=== PATIENT | female | born 1980 | race Caucasian/White ===

== ENCOUNTER → 2016-12-05 | Outpatient (CLI) | payer OTHER ==
[~2016-12-05] MED LIST: ABILIFY20 MG PO; ATIVAN 0.50.5 MG/TAB PO; BENADRYL50 MG PO; COUMADIN 77.5 MG/TAB PO; FAM-PREN FORTE1 CAP PO; FIORICET 325 MG1 TA1 PO; FOLIC ACID0.4 MG PO; KEPPRA750 MG PO; KLONOPIN 1MG1 MG PO; LAMICTAL 100MG100 MG PO; LEXAPRO20 MG PO; LOVENOX 100100 MG/ML SQ; MULTIPLE VITAMI1 TAB PO; REGLAN 10MG10 MG/TAB PO; ZOFRAN 4MG T4 MG/TAB PO
== END ==
LOC: BHSO 13:44
DX: F31.81 Bipolar II disorder (principal)

== ENCOUNTER → 2017-01-10 | Outpatient (CLI) | payer OTHER | LOC: BHSO 13:41 | DX: F42.2 Mixed obsessional thoughts and acts (principal) ==

== ENCOUNTER → 2017-03-07 | Outpatient (CLI) | payer OTHER | LOC: BHSO 13:57 | DX: F42.2 Mixed obsessional thoughts and acts (principal) ==

== ENCOUNTER → 2017-04-10 | Outpatient (CLI) | payer OTHER | LOC: COL.LAB 16:52 | DX: Z01.89 Encounter for other specified special examinations (principal) ==

== ENCOUNTER → 2017-05-04 | Outpatient (CLI) | payer OTHER | LOC: BHSO 11:12 | DX: F31.73 Bipolar disorder, in partial remission, most recent episode manic (principal) ==

== ENCOUNTER → 2017-06-14 | Outpatient (CLI) | payer OTHER | LOC: BHSO 14:45 | DX: F31.73 Bipolar disorder, in partial remission, most recent episode manic (principal) ==

== ENCOUNTER → 2017-08-21 | Outpatient (CLI) | payer OTHER | LOC: BHSO 15:31 | DX: F43.9 Reaction to severe stress, unspecified (principal) ==

== ENCOUNTER → 2017-11-05 | Outpatient (CLI) | payer OTHER | LOC: BHSO 14:35 | DX: F41.1 Generalized anxiety disorder (principal) | CPT/HCPCS: G0463 ==

== ENCOUNTER → 2018-01-24 | Outpatient (CLI) | payer OTHER | LOC: BHSO 13:51 | DX: F31.81 Bipolar II disorder (principal) | CPT/HCPCS: G0463 ==

== ENCOUNTER → 2018-03-20 | Outpatient (CLI) | payer OTHER | LOC: BHSO 13:38 | DX: F43.10 Post-traumatic stress disorder, unspecified (principal) | CPT/HCPCS: G0463 ==

== ENCOUNTER 2018-06-17 08:27 | Day surgery (SDC) | payer OTHER ==
[~2018-06-17] VITALS: Ht 162.6 cm; Wt 50.7 kg
[2018-06-17 09:10] VITALS: BP 128/65; PULSE 110; TEMP 98.5
[2018-06-17] MEDS ORDERED: KEPPRA1000 MG PO (09:17)
[2018-06-17] MEDS ORDERED: DEPAKOTE ER 50500 MG PO (09:18)
[2018-06-17] MEDS ORDERED: REXULTI4 MG PO (09:19)
[2018-06-17] MEDS ORDERED: CARAFATE 1GM1 G PO (09:20)
[2018-06-17] MEDS ORDERED: PRILOSEC 20MG20 MG PO (09:20)
[2018-06-17] MEDS ORDERED: PHENERGAN 25 TA25 MG PO (09:21)
[2018-06-17] MEDS ORDERED: FOLIC ACID 11 MG/TA1 PO (09:23)
[2018-06-17] MEDS ORDERED: HARD NAILS 2.51 CAP PO (09:23)
[2018-06-17] MEDS ORDERED: VITAMIN B COMPL1 T16 PO (09:24)
[2018-06-17] MEDS ORDERED: MULTI VITAMINS1 TAB PO (09:26)
[2018-06-17] MEDS ORDERED: NAPROSYN500 MG PO (09:27)
[2018-06-17] MEDS ORDERED: [UNRECOGNIZED DRUG - OTHER] PO (09:27)
[2018-06-17] MEDS ORDERED: DIASTAT PEDIAT2.5 MG RC (09:28)
[2018-06-17] MEDS ORDERED: FLEXERIL 1010 MG/TAB PO (09:32)
[2018-06-17 11:10] VITALS: BP 128/88; PULSE 88; TEMP 97.7
[2018-06-17 11:25] VITALS: BP 130/84; PULSE 86
[2018-06-17 11:30] VITALS: BP 121/79; PULSE 82
[2018-06-17 11:45] VITALS: BP 115/84; PULSE 84
[2018-06-17 12:00] VITALS: BP 113/77; PULSE 75
== END 2018-06-17 12:35 | disposition home or self-care (01) ==
LOC: SDCO 08:27
DX: K29.30 Chronic superficial gastritis without bleeding (principal); F41.9 Anxiety disorder, unspecified; F32.9 Major depressive disorder, single episode, unspecified; K21.9 Gastro-esophageal reflux disease without esophagitis; R56.9 Unspecified convulsions; F50.2 Bulimia nervosa; R19.7 Diarrhea, unspecified; Z86.010 Personal history of colon polyps
CPT/HCPCS: OP; J2250; J2704; J7030

== ENCOUNTER 2019-02-10 13:11 | Emergency (ER) | payer OTHER ==
[~2019-02-10] VITALS: Ht 172.7 cm; Wt 62.7 kg
[~2019-02-10 13:11] MED LIST changes: +CARAFATE 1GM1 G PO; +DEPAKOTE ER 50500 MG PO; +DIASTAT PEDIAT2.5 MG RC; +FLEXERIL 1010 MG/TAB PO; +FOLIC ACID 11 MG/TA1 PO; +HARD NAILS 2.51 CAP PO; +KEPPRA1000 MG PO; +MULTI VITAMINS1 TAB PO; +NAPROSYN500 MG PO; +PHENERGAN 25 TA25 MG PO; +PRILOSEC 20MG20 MG PO; +REXULTI4 MG PO; +VITAMIN B COMPL1 T16 PO; +[UNRECOGNIZED DRUG - OTHER] PO
[2019-02-10 13:14] VITALS: TEMP 97.8
[2019-02-10 14:02] LABS: ALANINE AMINOTRANSFERASE 12 U/L (9-52); ALBUMIN 4.4 gm/dL (3.5-5.0); ALKALINE PHOSPHATASE 51 U/L (50-136); ANION GAP 12 mmol/L (7-16); AST,SGOT 29 U/L (15-37); BILIRUBIN,TOTAL 0.4 mg/dL (0.0-1.0); BLOOD UREA NITROGEN 12 mg/dL (7-17); CALCIUM 9.2 mg/dL (8.4-10.2); CARBON DIOXIDE 25 mmol/L (22-30); CHLORIDE 101 mmol/L (98-107); GLUCOSE 81 mg/dL (74-106); POTASSIUM 4.1 mmol/L (3.4-5.0); SODIUM 137 mmol/L (137-145); TOTAL PROTEIN 8.1 gm/dL (6.4-8.2)
[2019-02-10 14:11] LABS: C-REACTIVE PROTEIN < 0.5 mg/dL (0.0-0.9)
[2019-02-10 14:15] LABS: PROLACTIN 63.3 ng/mL (3.0-18.6)
[2019-02-10 14:19] LABS: COLLECTION METHOD CLEAN CATCH
[2019-02-10 14:33] LABS: PH 6 (5-8); SQUAMOUS EPITHELIAL 0-2 /hpf; URINE APPEARANCE Clear; URINE BACTERIA Rare /hpf; URINE BILIRUBIN Negative (NEGATIVE); URINE BLOOD Negative (NEGATIVE); URINE COLOR Yellow; URINE GLUCOSE Negative (NEGATIVE); URINE KETONE Negative (NEGATIVE); URINE LEUKOCYTE ESTERASE Negative (NEGATIVE); URINE NITRATE Negative (NEGATIVE); URINE PROTEIN(semi-quant) Negative (NEGATIVE); URINE RBC None Seen /hpf; URINE UROBILINOGEN Negative (NEGATIVE)
[2019-02-10 14:50] VITALS: BP 106/73; PULSE 77
== END 2019-02-10 14:52 | disposition home or self-care (01) ==
LOC: COL.ER 13:11
PROVIDERS: Family Medicine
DX: G40.909 Epilepsy, unspecified, not intractable, without status epilepticus (principal)
CPT/HCPCS: J2060; J2405; J7030

== ENCOUNTER 2019-02-14 15:55 | Emergency (ER) | payer OTHER ==
[~2019-02-14] VITALS: Ht 162.6 cm; Wt 54.5 kg
[2019-02-14 16:37] LABS: BASO # 0.1 (0.0-0.2); BASO % 0.9 % (0.0-2.0); EOS # 0.1 (0.0-0.7); EOS % 1.8 % (0-4.0); GRAN % 53.4 % (42.2-75.2); HEMATOCRIT 43.9 % (37.0-47.0); HEMOGLOBIN 14.7 g/dl (12.5-16.0); LYMPH % 35.9 % (20.0-51.0); MEAN CELL VOLUME 86 fl (80.0-100.0); MEAN CORPUSCULAR HEMOGLOBIN 29 pg (27.0-31.0); MEAN CORPUSCULAR HGB CONC 34 g/dl (33.0-37.0); MEAN PLATELET VOLUME 9.8 fl (7.4-10.4); MONO # 0.4 (0.1-0.6); MONO % 7.6 % (1.7-9.3); PLATELET COUNT 235 K/mm3 (130-400); RED BLOOD COUNT 5.13 M/mm3 (4.10-5.30); REDCELL DISTRIBUTION WIDTH-CV 12.4 % (11.5-14.5)
[2019-02-14] MEDS ORDERED: REMERON 15M15 MG/TA1 PO (16:40)
[2019-02-14] MEDS ORDERED: PRIL40 PO (16:41)
[2019-02-14] MEDS ORDERED: PHENERGAN 25 TA25 MG PO (16:41)
[2019-02-14] MEDS ORDERED: REXULTI4 MG PO (16:41)
[2019-02-14 16:52] LABS: ACETAMINOPHEN < 10 ug/mL (10-30); ALANINE AMINOTRANSFERASE 11 U/L (9-52); ALBUMIN 4.9 gm/dL (3.5-5.0); ALKALINE PHOSPHATASE 68 U/L (50-136); ANION GAP 12 mmol/L (7-16); AST,SGOT 21 U/L (15-37); BILIRUBIN,TOTAL 0.3 mg/dL (0.0-1.0); BLOOD UREA NITROGEN 8 mg/dL (7-17); CALCIUM 9.7 mg/dL (8.4-10.2); CARBON DIOXIDE 31 mmol/L (22-30); CHLORIDE 100 mmol/L (98-107); CREATINE KINASE 46 U/L (30-135); CREATININE, serum 1.16 (0.52-1.25); GLUCOSE 107 mg/dL (74-106); POTASSIUM 3.8 mmol/L (3.4-5.0); SALICYLATE < 1.0 mg/dL; SODIUM 143 mmol/L (137-145)
[2019-02-14 17:07] LABS: PROLACTIN 29.4 ng/mL (3.0-18.6); TROPONIN-I < 0.012 ng/mL (0.000-0.035)
[2019-02-14 17:56] LABS: COLLECTION METHOD CLEAN CATCH
[2019-02-14 18:06] LABS: PH 7 (5-8); SQUAMOUS EPITHELIAL 0-2 /hpf; URINE APPEARANCE Clear; URINE BACTERIA None Seen /hpf; URINE BILIRUBIN Negative (NEGATIVE); URINE BLOOD Negative (NEGATIVE); URINE COLOR Straw; URINE GLUCOSE Negative (NEGATIVE); URINE KETONE Negative (NEGATIVE); URINE LEUKOCYTE ESTERASE Negative (NEGATIVE); URINE NITRATE Negative (NEGATIVE); URINE PROTEIN(semi-quant) Negative (NEGATIVE); URINE RBC 0-2 /hpf; URINE UROBILINOGEN Negative (NEGATIVE)
[2019-02-14] MEDS ORDERED: DEPAKOTE ER 25250 MG PO (19:02)
[2019-02-14 19:44] VITALS: BP 100/70; PULSE 100
== END 2019-02-14 19:12 | disposition home or self-care (01) ==
LOC: COL.ER 15:55
PROVIDERS: Emergency Medicine
DX: G40.89 Other seizures (principal); F50.9 Eating disorder, unspecified
CPT/HCPCS: J2060; J7030

== ENCOUNTER 2019-02-23 18:53 | Emergency (ER) | payer OTHER ==
[~2019-02-23] VITALS: Ht 167.6 cm; Wt 54.5 kg
[~2019-02-23 18:53] MED LIST changes: +DEPAKOTE ER 25250 MG PO; +PRIL40 PO; +REMERON 15M15 MG/TA1 PO
[2019-02-23 18:57] VITALS: TEMP 98.8
[2019-02-23 19:19] LABS: BASO # 0.1 (0.0-0.2); BASO % 0.6 % (0.0-2.0); EOS # 0.1 (0.0-0.7); GRAN # 4.4 (1.4-6.5); HEMATOCRIT 38.8 % (37.0-47.0); HEMOGLOBIN 12.9 g/dl (12.5-16.0); LYMPH # 2.6 (1.2-3.4); LYMPH % 34.2 % (20.0-51.0); MEAN CELL VOLUME 87 fl (80.0-100.0); MEAN CORPUSCULAR HEMOGLOBIN 29 pg (27.0-31.0); MEAN CORPUSCULAR HGB CONC 33 g/dl (33.0-37.0); MEAN PLATELET VOLUME 9.7 fl (7.4-10.4); MONO # 0.6 (0.1-0.6); MONO % 7.1 % (1.7-9.3); PLATELET COUNT 210 K/mm3 (130-400); RED BLOOD COUNT 4.45 M/mm3 (4.10-5.30); REDCELL DISTRIBUTION WIDTH-CV 12.6 % (11.5-14.5)
[2019-02-23 19:30] LABS: ALBUMIN 4.5 gm/dL (3.5-5.0); BILIRUBIN,TOTAL 0.3 mg/dL (0.0-1.0); CALCIUM 9.4 mg/dL (8.4-10.2); CREATININE, serum 0.96 (0.52-1.25); POTASSIUM 3.4 mmol/L (3.4-5.0); TOTAL PROTEIN 7.9 gm/dL (6.4-8.2)
[2019-02-23] MEDS ORDERED: DEPAKOTE ER 50500 MG PO (19:42)
[2019-02-23] MEDS ORDERED: PRILOSEC 20MG20 MG PO (19:43)
[2019-02-23] MEDS ORDERED: MELATONIN 3MG PO (19:44)
[2019-02-23 19:46] LABS: PROLACTIN 61.2 ng/mL (3.0-18.6)
[2019-02-23 20:01] LABS: VALPROIC ACID (DEPAKENE) 32.2 ug/mL (50.0-100.0)
[2019-02-23 22:01] LABS: COLLECTION METHOD CLEAN CATCH
[2019-02-23 22:11] LABS: PH 6 (5-8); SQUAMOUS EPITHELIAL 0-2 /hpf; URINE APPEARANCE Clear; URINE BACTERIA None Seen /hpf; URINE BILIRUBIN Negative (NEGATIVE); URINE BLOOD Negative (NEGATIVE); URINE COLOR Yellow; URINE GLUCOSE Negative (NEGATIVE); URINE KETONE Negative (NEGATIVE); URINE LEUKOCYTE ESTERASE Negative (NEGATIVE); URINE NITRATE Negative (NEGATIVE); URINE PROTEIN(semi-quant) Negative (NEGATIVE); URINE RBC 0-2 /hpf; URINE UROBILINOGEN Negative (NEGATIVE); URINE WBC 0-2 /hpf
[2019-02-23] MEDS ORDERED: FLAGYL500 MG PO (22:49)
[2019-02-23] MEDS ORDERED: CIPRO 500MG TA500 MG PO (22:49)
[2019-02-23] MEDS ORDERED: NORCO 325 MG-51 TAB PO (22:49)
[2019-02-23 23:13] VITALS: BP 109/72; PULSE 80
== END 2019-02-23 23:14 | disposition home or self-care (01) ==
LOC: COL.ER 18:53
PROVIDERS: Emergency Medicine
DX: K52.9 Noninfective gastroenteritis and colitis, unspecified (principal); R56.9 Unspecified convulsions; F32.9 Major depressive disorder, single episode, unspecified; F41.9 Anxiety disorder, unspecified; Z98.890 Other specified postprocedural states
CPT/HCPCS: J2270

== ENCOUNTER 2019-02-25 11:15 | Day surgery (SDC) | payer OTHER ==
[2019-02-25] VITALS (13 sets, daily range): BP systolic 101–127; BP diastolic 63–88; PULSE 83–110; TEMP 97.3–97.7
[~2019-02-25] VITALS: Ht 162.6 cm; Wt 53.0 kg
[~2019-02-25 11:15] MED LIST changes: +CIPRO 500MG TA500 MG PO; +FLAGYL500 MG PO; +MELATONIN 3MG PO; +NORCO 325 MG-51 TAB PO
--- NOTE | 2019-02-25 11:35 | NUR ---
Davis Palmer CRNA was notified that the patient has been admitted to [facility] 8 at this time. The nurse also reported to the PROJECT ESTIMATOR the patient's verbalized report of her reaction to anesthesia medications in the past. He verbalized understanding and is going to come meet with the patient prior to the procedure.
[2019-02-25] MEDS ORDERED: DESYREL 50MG50 MG PO (11:41)
[2019-02-25] MEDS ORDERED: ATIVAN 0.50.5 MG/TAB PO (11:42)
[2019-02-25] MEDS ORDERED: FOLIC ACID 11 MG/TA1 PO (11:42)
[2019-02-25] MEDS ORDERED: VITAMIN B COMPL1 SGL PO (11:43)
[2019-02-25] MEDS ORDERED: CALCIUM CARBON650 M2 PO (11:44)
[2019-02-25] MEDS ORDERED: HARD NAILS 2.51 CAP PO (11:44)
[2019-02-25] MEDS ORDERED: ADULT MULTIVIT1 EACH PO (11:45)
[2019-02-25] MEDS ORDERED: LIDODERM 5% PATC1 EA TP (11:45)
[2019-02-25] MEDS ORDERED: [UNRECOGNIZED DRUG - OTHER] PO (11:46)
[2019-02-25] MEDS ORDERED: FLAGYL500 MG PO (11:47)
[2019-02-25] MEDS ORDERED: CIPRO 250MG TA250 MG PO (11:47)
[2019-02-25] MEDS ORDERED: NAPROSYN500 MG PO (11:47)
[2019-02-25] MEDS ORDERED: XIFAXAN550 MG PO (11:48)
[2019-02-25] MEDS ORDERED: VERSED 2MG/2M1 MG/ML IH (11:59)
--- NOTE | 2019-02-25 13:25 | NUR ---
Patient still does not respons to verbal or physical stimuli. remains at bedside. Will continue to closely monitor.
--- NOTE | 2019-02-25 13:40 | NUR ---
Patient continues to not respond to verbal or physical stimuli at this time. Patients at bedside. Will continue to closely monitor.
--- NOTE | 2019-02-25 13:45 | NUR ---
Patient returned to bay 8 on cart. Patient non responsive at this time. Cart placed in room. Vital signs obtained, WNL. Patients at bedside. States that last time she had Propofol she did not wake for over 2 hours. Patient to be moniotored very closely at this time. Call adamson within husbands reach. Instructed to ring if she wakes up. All safety measures in place.
--- NOTE | 2019-02-25 13:52 | NUR ---
Patient still does not respond to verbal or physical stimuli. Vital signs WNL. Will continue to monitor closely.
--- NOTE | 2019-02-25 13:55 | NUR ---
Patient still is not responding to verbal or physical stimuli. Will continue to monitor closely.
--- NOTE | 2019-02-25 14:10 | NUR ---
Patient still is not responding to verbal or physical stimuli. Vital signs stable. Will continue to monitor.
--- NOTE | 2019-02-25 14:25 | NUR ---
Patient still does not respond to verbal or physical stimuli. Vital signs stable, will continue to monitor.
--- NOTE | 2019-02-25 14:40 | NUR ---
Patient continues to not respond to physical or verbal stimulus. Vital signs WNL. Will continue to monitor.
--- NOTE | 2019-02-25 14:55 | NUR ---
Upon arriving to patients room for check. Noticed that she was having involuntary movement to bilateral legs arms and head. Patients pulse elevated at 110. Leads placed on patient, NSR. Patient has history of seizure activity. SpO2 maintained at this time. Anestesia provider made aware. at bedside. Will continue to monitor.
--- NOTE | 2019-02-25 15:25 | NUR ---
Patient responding appropriatly to verbal and physical stimuli. Vital signs stable. at bedside. Will continue to monitor.
--- NOTE | 2019-02-25 15:30 | NUR ---
Patient's states that she is having some nausea. Anestesia made aware. States may have second dose of Zofran at this time. Will continue to monitor.
--- NOTE | 2019-02-25 15:40 | NUR ---
Patient states she would like to go home at this time. Vital signs stable. States nausea has improved. Dr. Newman made aware of impending dishcarge, in agreement. Will continue to monitor.
--- NOTE | 2019-02-25 15:43 | NUR ---
Patient will now respond to to yes no questions using head nod or shake. Tremors have stopped at this time. Vital signs returned to normal. Will continue to monitor.
--- NOTE | 2019-02-25 16:00 | NUR ---
Discharge instructions reviewed with patient and . Verbalized understanding. IV removed per MD orders. Patient to get dressed at this time.
--- NOTE | 2019-02-25 16:15 | NUR ---
Patient wheeled to lobby. To be driven home by .
== END 2019-02-25 16:15 | disposition home or self-care (01) ==
LOC: SDCO 11:15
DX: R19.7 Diarrhea, unspecified (principal); R10.84 Generalized abdominal pain; K64.0 First degree hemorrhoids; G40.909 Epilepsy, unspecified, not intractable, without status epilepticus; Z79.899 Other long term (current) drug therapy; F32.9 Major depressive disorder, single episode, unspecified
CPT/HCPCS: J2405; J2704

== ENCOUNTER → 2019-02-28 | Outpatient (CLI) | payer OTHER ==
[~2019-02-28] MED LIST changes: +ADULT MULTIVIT1 EACH PO; +CALCIUM CARBON650 M2 PO; +CIPRO 250MG TA250 MG PO; +DESYREL 50MG50 MG PO; +LIDODERM 5% PATC1 EA TP; +VERSED 2MG/2M1 MG/ML IH; +VITAMIN B COMPL1 SGL PO; +XIFAXAN550 MG PO
== END ==
LOC: COL.LAB 08:35
DX: R19.7 Diarrhea, unspecified (principal)

== ENCOUNTER 2019-03-04 17:00 | Inpatient (IN) | payer OTHER ==
[2019-03-04] VITALS (284 sets, daily range): BP systolic 110–128; BP diastolic 74–77; PULSE 59–65; TEMP 97.4–97.6; O2SAT 50–100
[~2019-03-04] VITALS: Ht 170.2 cm; Wt 54.6 kg
[2019-03-04 17:47] LABS: BASO % 0.4 % (0.0-2.0); EOS % 0.4 % (0-4.0); GRAN # 3.8 (1.4-6.5); GRAN % 67.1 % (42.2-75.2); HEMOGLOBIN 11.6 g/dl (12.5-16.0); LYMPH # 1.5 (1.2-3.4); LYMPH % 25.5 % (20.0-51.0); MEAN CELL VOLUME 86 fl (80.0-100.0); MEAN CORPUSCULAR HEMOGLOBIN 29 pg (27.0-31.0); MEAN CORPUSCULAR HGB CONC 33 g/dl (33.0-37.0); MEAN PLATELET VOLUME 10.3 fl (7.4-10.4); MONO # 0.4 (0.1-0.6); MONO % 6.2 % (1.7-9.3); PLATELET COUNT 149 K/mm3 (130-400); RED BLOOD COUNT 4.05 M/mm3 (4.10-5.30); REDCELL DISTRIBUTION WIDTH-CV 12.2 % (11.5-14.5)
[2019-03-04 17:53] LABS: HEMATOCRIT 34.8 % (37.0-47.0)
[2019-03-04 17:57] LABS: ALANINE AMINOTRANSFERASE 18 U/L (9-52); ALKALINE PHOSPHATASE 45 U/L (50-136); ANION GAP 11 mmol/L (7-16); AST,SGOT 22 U/L (15-37); BILIRUBIN,TOTAL 0.2 mg/dL (0.0-1.0); BLOOD UREA NITROGEN 17 mg/dL (7-17); CALCIUM 8.8 mg/dL (8.4-10.2); CARBON DIOXIDE 27 mmol/L (22-30); CHLORIDE 103 mmol/L (98-107); CREATININE, serum 0.89 (0.52-1.25); GLUCOSE 112 mg/dL (74-106); MAGNESIUM 1.7 mg/dL (1.6-2.3); PHOSPHOROUS 3.3 mg/dL (2.5-4.5); SODIUM 141 mmol/L (137-145); TOTAL PROTEIN 6.9 gm/dL (6.4-8.2)
[2019-03-04 18:10] LABS: ARTERIAL BLD GAS O2 SATURATION 99.1 % (92-100); ARTERIAL BLD GAS TCO2 CT 20.3; ARTERIAL BLOOD GAS BASE EXCESS -0.5 (-2-2); ARTERIAL BLOOD GAS HCO3 19.7 meq/L (22-26); ARTERIAL BLOOD GAS pH 7.58 (7.35-7.45)
[2019-03-04 18:12] LABS: ARTERIAL BLOOD GAS PCO2 21.7 mmHg (35-45); ARTERIAL BLOOD GAS PO2 332.8 mmHg (80-100)
[2019-03-04 18:16] LABS: COLLECTION METHOD CLEAN CATCH
[2019-03-04 18:23] LABS: MUCOUS Present /lpf; PH 6 (5-8); SQUAMOUS EPITHELIAL 0-2 /hpf; URINE APPEARANCE Hazy; URINE BACTERIA None Seen /hpf; URINE BILIRUBIN Negative (NEGATIVE); URINE BLOOD Negative (NEGATIVE); URINE COLOR Amber; URINE GLUCOSE Negative (NEGATIVE); URINE KETONE 1+ (NEGATIVE); URINE LEUKOCYTE ESTERASE Trace (NEGATIVE); URINE NITRATE Negative (NEGATIVE); URINE PROTEIN(semi-quant) 1+ (NEGATIVE); URINE RBC 0-2 /hpf; URINE UROBILINOGEN Negative (NEGATIVE)
[2019-03-04 18:29] LABS: ACETAMINOPHEN < 10 ug/mL (10-30); ALCOHOL(ethanol),MEDICAL < 10 mg/dL; POTASSIUM 2.9 mmol/L (3.4-5.0); SALICYLATE < 1.0 mg/dL
--- NOTE | 2019-03-04 18:36 | NUR ---
Bolus versed with initation given per order.
[2019-03-04 18:37] LABS: TRICYCLIC ANTIDEPRESS URINE NEGATIVE
--- NOTE | 2019-03-04 19:00 | NUR ---
Versed gtt increased et 3 mg bolus dose given off of drip per direction of Dr. Molina to assist with sedation for central line placement.
--- NOTE | 2019-03-04 19:15 | NUR ---
Bedside report given to ZAHEER Irene.
--- NOTE | 2019-03-04 19:16 | NUR ---
PT INTUBATED IN ER TRANSFERRED TO ICU TOLERATED WELL. NO DISTRESS NOTED CONTINUE TO MONITOR
--- NOTE | 2019-03-04 19:20 | NUR ---
Central line insertion complete at this time. Right subclavian line placed by Dr. Molina at bedside. Sterile precautions followed per protocol. Time-out performed prior. Conset signed by and verified prior to procedure start. Pt tolerated procedure well with no signs of pain or discomfort noted while on the ventilator. X-ray currently at bedside to verify line placement.
--- NOTE | 2019-03-04 19:20 | NUR ---
Bedside report received from ZAHEER Kulkarni. All medications and lines reviewed. Central line being placed at this time.
--- NOTE | 2019-03-04 19:30 | NUR ---
Versed decreased from 3mg to 2mg/hr per Dr. Molina for decreasing heart rate.
--- NOTE | 2019-03-04 20:00 | NUR ---
Assessment complete. Patient resting in bed on the vent, no signs of distress or pain. Patient withdrawls from pain only. Does not open eyes. Lungs sounds are loud with rhonchi in the upper lobes bilaterally. Bases are diminished bilaterally. Patient is bradycardic in the 50's. Bowel sounds are active. Patient is having a large amount of sticky clear secretions, she is requiring frequent suctioning. All other findings are WNL. Vitals have been stable since arrival. No further needs at this time. Will continue to monitor. Call light within reach.
[2019-03-04] MEDS ORDERED: DEPAKOTE ER 25250 MG PO (20:06)
[2019-03-04] MEDS ORDERED: ATIVAN 1MG T1 MG/TAB PO (20:08)
[2019-03-05] VITALS (683 sets, daily range): BP systolic 99–131; BP diastolic 64–86; PULSE 61–86; TEMP 97.4–98.6; O2SAT 99–100
--- NOTE | 2019-03-05 | NUR ---
Assessment complete. Patient resting in bed on the ventilator, no signs of distress or pain. Patient intermittently will cough against the ventilator and try to sit forward, but quickly calms back down. When asked to open eyes, patient does not respond, when asked to squeeze hands, she attempts to squeeze, but is very weak. Lungs sound clear with diminished bases. Heart rate has improved only dropping into the upper 50's intermittently. All vitals remain stable and WNL. Patient's secretions have continued to come in large amounts. Frequent suctioning still required. No further needs at this time. Will continue to monitor. Call light within reach.
[2019-03-05 00:20] LABS: ARTERIAL BLD GAS O2 SATURATION 98.7 % (92-100); ARTERIAL BLD GAS TCO2 CT 21.2; ARTERIAL BLOOD GAS BASE EXCESS -2.5 (-2-2); ARTERIAL BLOOD GAS HCO3 20.3 meq/L (22-26); ARTERIAL BLOOD GAS PCO2 29.7 mmHg (35-45); ARTERIAL BLOOD GAS pH 7.45 (7.35-7.45)
--- NOTE | 2019-03-05 01:00 | NUR ---
Poison control calls at this time. Gave results of most recent EKG, which was normal, as well as most recent vitals. Updated them on patient status and that she has remained stable throughout the shift. No further questions at this time. They will check in again later.
--- NOTE | 2019-03-05 04:00 | NUR ---
Patient resting in bed on the vent. No signs of distress or pain. Assessment complete. Patient follows commands including wiggling her toes and squeezing her hands, but does not open her eyes. Lungs sound coarse with diminished bases. All other findings remain the same as previous exam. Vitals remain stable. Patient's urine output has been decreasing throughout shift, has now dropped to 15ml within the last hour. [facility] to be notified. No other needs at this time. Will continue to monitor. Call light within reach.
--- NOTE | 2019-03-05 05:00 | NUR ---
Sedation vacation started at this time. Fentanyl and Versed dropped by half.
[2019-03-05 05:59] LABS: BASO % 0.5 % (0.0-2.0); EOS # 0.1 (0.0-0.7); EOS % 1.4 % (0-4.0); GRAN # 2.9 (1.4-6.5); GRAN % 51.2 % (42.2-75.2); HEMOGLOBIN 10.1 g/dl (12.5-16.0); LYMPH # 2.2 (1.2-3.4); LYMPH % 37.5 % (20.0-51.0); MEAN CELL VOLUME 88 fl (80.0-100.0); MEAN CORPUSCULAR HEMOGLOBIN 29 pg (27.0-31.0); MEAN CORPUSCULAR HGB CONC 33 g/dl (33.0-37.0); MEAN PLATELET VOLUME 10.5 fl (7.4-10.4); MONO # 0.5 (0.1-0.6); MONO % 9.2 % (1.7-9.3); PLATELET COUNT 146 K/mm3 (130-400); RED BLOOD COUNT 3.52 M/mm3 (4.10-5.30); REDCELL DISTRIBUTION WIDTH-CV 12.6 % (11.5-14.5)
[2019-03-05 06:09] LABS: BILIRUBIN,TOTAL 0.2 mg/dL (0.0-1.0); CALCIUM 7.9 mg/dL (8.4-10.2); CREATININE, serum 0.88 (0.52-1.25); MAGNESIUM 2.4 mg/dL (1.6-2.3); PHOSPHOROUS 2.6 mg/dL (2.5-4.5); POTASSIUM 3.7 mmol/L (3.4-5.0); TOTAL PROTEIN 5.5 gm/dL (6.4-8.2)
[2019-03-05 06:11] LABS: ARTERIAL BLD GAS O2 SATURATION 98.3 % (92-100); ARTERIAL BLD GAS TCO2 CT 23.6; ARTERIAL BLOOD GAS BASE EXCESS -2.2 (-2-2); ARTERIAL BLOOD GAS HCO3 22.4 meq/L (22-26); ARTERIAL BLOOD GAS PCO2 37.7 mmHg (35-45); ARTERIAL BLOOD GAS pH 7.39 (7.35-7.45)
[2019-03-05 06:14] LABS: ARTERIAL BLOOD GAS PO2 169.9 mmHg (80-100)
--- NOTE | 2019-03-05 07:00 | NUR ---
Bedside shift report received from ZAHEER Irene. Patient is sedated and ventilated. Patient is able to follow commands by squeezing hands, but does not open her eyes at this time. Assessment completed. All invasive lines assessed and secured. Refer to titration documentation for medication rates and titrations. CAM assessment and suicide assessment unable to be completed at this time. Call light placed within reach. Bed lowered to lowest position. Patient is in no apparent distress at this time.
--- NOTE | 2019-03-05 07:10 | NUR ---
Sedation on standy per Dr. Molina's order.
--- NOTE | 2019-03-05 07:10 | NUR ---
Bedside report given to ZAHEER Li. All medications and lines reviewed. Transfer of care at this time.
--- NOTE | 2019-03-05 08:30 | NUR ---
Patient becomes restless, shaking head back and forth. Respiratory rate increases. Dr. Molina order to start back sedation.
--- NOTE | 2019-03-05 10:15 | NUR ---
Patient restless and agitated at this time. Sedation increased.
--- NOTE | 2019-03-05 10:50 | NUR ---
Due to patient being intubated, SW contacted patient's , Alfredo (who is an [facility] parametic), to get patient's history. Alfredo reports that patient has been at an inpatient psych unit 3 times for and has been hospitalized multiple times. Alfredo reported that patient is seen at [facility] on a regular basis as well. Alfredo reports that since this was a suicide attempt, he knows patient will need inpatient psych treatment once she is medically stable and when psych is consulted he would prefer [facility] to do the screen. PIETER relayed this information to the nurse. PIETER also provided her phone number to Alfredo is he has any questions or concerns at a later date. Patient's PCP, Dr Cortés, and pharmacy is on [facility] at [facility]. Patient's reports patient does have a DPOA and [facility] should have a copy of that form. PIETER will contact [facility] to request the DPOA form. PIETER will continue to follow.
--- NOTE | 2019-03-05 12:00 | NUR ---
The patient has not experienced any significant changes at this time. Patient remains sedated and ventilated and in no apparent distress.
--- NOTE | 2019-03-05 14:58 | NUR ---
Patient's family have not visited the patient today. Patient's hubsand educated on patient's status via telephone.
--- NOTE | 2019-03-05 15:00 | NUR ---
, Alfredo, at bedside and noticed that the patient's hand is a little swollen possibly from the fluids. Alfredo decided to take the patient's wedding band off and take it home with him. Initial admission documentation edited and updated to reflect this change.
--- NOTE | 2019-03-05 15:30 | NUR ---
Patient is awake and alert which is noted by the patient opening her eyes and blinking as well as the patient lifting her head off the bed and following commands. Patient is reoriented to time, place, and situation at this time. Patient nods in understanding. Patient is calm and does not appear to be agitated at this time.
--- NOTE | 2019-03-05 16:00 | NUR ---
Patient is more awake and alert at this time. , Alfredo, at bedside and visiting with patient. Patient is calm and does not appear to be in any distress.
--- NOTE | 2019-03-05 16:57 | NUR ---
PIETER met with patient's , Alfredo. PIETER informed Alfredo that she will do research on inpatient psych units that can bill insurance. Alfredo requests patient not return to the [facility] psych unit because he does not feel they were helpful. PIETER will also contact patient's rifle case repairer on [address] to inquire if she know inpatient psych unit that take insurance.
--- NOTE | 2019-03-05 17:16 | NUR ---
On sedation vacation, patient is calm and follows commands by squeezing hands. Patient is unable to open eyes or lift head off of the bed at this time.
--- NOTE | 2019-03-05 19:37 | NUR ---
Bedside report recieved from ZAHEER Li. All lines and medications reviewed. Transfer of care at this time.
--- NOTE | 2019-03-05 19:38 | NUR ---
Bedside shift report given to ZAHEER Irene. Patient remains sedated, ventilated, and in no apparent distress at this time. Call light within reach. Bed in lowest position.
--- NOTE | 2019-03-05 20:00 | NUR ---
Assessment complete. Patient resting on the ventilator, no signs of distress or pain. Patient opens eyes to name and follows commands. Hand retail account executive are equal, but weak. Lungs are clear with diminished bases. Bowel sounds are active. HR regular. Urine output has been good so far this shift. Vitals are WNL. No further needs at this time. Will continue to monitor. Call light within reach.
--- NOTE | 2019-03-05 20:30 | NUR ---
Sedation increased at this time. Patient has started coughing hard against the vent and fighting it. She is hyperventilating, with a respiratory rate reaching into the 50's, and trying to sit forward. Tried to talk to her and calm her down with RT Wally, to no success. Fentanyl increased to normal starting dose of 25mcg/hr and Versed up to 3mg/hr. Stayed at patient beside holding her hand until settled down. Will continue to monitor.
--- NOTE | 2019-03-05 21:10 | NUR ---
Poison control calls at this time to request update on the patient. Provided most recent vital signs and update on patient status. Let them know that her urine output has increased again and that the plan is to extubate tomorrow. Nothing further at this time. They will call again in the morning to see how she is progressing.
[2019-03-06] VITALS (132 sets, daily range): BP systolic 91–126; BP diastolic 47–87; PULSE 63–97; TEMP 97.4–100.5; O2SAT 99–100
--- NOTE | 2019-03-06 | NUR ---
Assessment complete. patient appears much more comfortable now. No signs of restlessness or distress. Patient does not appear to be in any pain. Patient is even more responsive than previously in this shift and assists with turning and also moving extremities when asked. Assessment reveals some edema starting to form in both her hands, nonpitting. All other findings remain the same as previous exam. Patient continues to have good urine output. Vitals have remained stable and WNL. No further needs at this time. Will continue to monitor. Call light within reach.
--- NOTE | 2019-03-06 04:00 | NUR ---
Assessment complete. Patient is resting comfortably on the vent. She is still responsive to commands, just drowsy. Assessment revelas no changes from previous exam. Patient is in no distress and does not appear to be in any pain. Vitals have remained stable and urine output has been good throughout the night. Repositioned for comfort. No further needs at this time. Will continue to monitor. Call light within reach.
[2019-03-06 04:58] LABS: BASO % 0.3 % (0.0-2.0); EOS # 0.1 (0.0-0.7); EOS % 2.4 % (0-4.0); GRAN # 3.1 (1.4-6.5); GRAN % 52.8 % (42.2-75.2); HEMOGLOBIN 10.1 g/dl (12.5-16.0); MEAN CELL VOLUME 88 fl (80.0-100.0); MEAN CORPUSCULAR HEMOGLOBIN 29 pg (27.0-31.0); MEAN CORPUSCULAR HGB CONC 33 g/dl (33.0-37.0); MEAN PLATELET VOLUME 10.4 fl (7.4-10.4); MONO # 0.6 (0.1-0.6); MONO % 10.2 % (1.7-9.3); PLATELET COUNT 120 K/mm3 (130-400); RED BLOOD COUNT 3.53 M/mm3 (4.10-5.30); REDCELL DISTRIBUTION WIDTH-CV 12.6 % (11.5-14.5)
--- NOTE | 2019-03-06 05:00 | NUR ---
Sedation vacation started at this time. Fentanyl and Versed cut in half. Will continue to monitor.
[2019-03-06 05:09] LABS: ALBUMIN 2.8 gm/dL (3.5-5.0); BILIRUBIN,TOTAL 0.4 mg/dL (0.0-1.0); CREATININE, serum 0.81 (0.52-1.25); MAGNESIUM 1.7 mg/dL (1.6-2.3); PHOSPHOROUS 3.3 mg/dL (2.5-4.5); POTASSIUM 3.7 mmol/L (3.4-5.0); TOTAL PROTEIN 5.3 gm/dL (6.4-8.2)
[2019-03-06 05:51] LABS: ARTERIAL BLD GAS O2 SATURATION 98.6 % (92-100); ARTERIAL BLOOD GAS BASE EXCESS -4.9 (-2-2); ARTERIAL BLOOD GAS PCO2 31.5 mmHg (35-45); ARTERIAL BLOOD GAS PO2 152.7 mmHg (80-100)
--- NOTE | 2019-03-06 06:05 | NUR ---
Patient placed on smartcare at this time.
--- NOTE | 2019-03-06 06:28 | NUR ---
Patient fails smartcare at this time for prolonged apnea. Patient required coaching through the trial. She began hyperventilating and shaking uncontrollably. Stayed at bedside calming patient, eventually her breathing slowed down to a normal rate and the shaking stopped. Patient then started having apneic periods. Ventilator took her off of smartcare.
--- NOTE | 2019-03-06 06:29 | NUR ---
PT ON SMART CARE NO DISTRESS NOTED
--- NOTE | 2019-03-06 07:07 | NUR ---
Dr. Dejesus at the bedside at this time. Provided phone number of GERALD Roa/DAHIANA to discuss findings and plan. He will call her this morning.
--- NOTE | 2019-03-06 07:12 | NUR ---
Bedside report given to ZAHEER Mcdaniel. All lines and medications reviewed. Transfer of care at this time.
--- NOTE | 2019-03-06 07:12 | NUR ---
Bedside report recieved from ZAHEER Irene. Patient resting and intubated at this time. ETT and OG tube placement verified. Ventilator settings reviewed. RSC central line uncomplicated. Gtt rates and concentrations reveiwed. OG to LIS and miller with positive UO noted. 2pt soft wrist restraints in place as per order. Bed in low and locked position, rails up x3, call light within reach, bed alarm armed. Care assumed.
--- NOTE | 2019-03-06 07:46 | NUR ---
Dr. Molina present at this time. Orders as entered CPOE.
--- NOTE | 2019-03-06 08:19 | NUR ---
Patient aborted from smart care at this time secondary to apnea. RT notified.
--- NOTE | 2019-03-06 08:57 | NUR ---
Dr. Green rounds at this time. Orders as entered CPOE.
--- NOTE | 2019-03-06 08:57 | NUR ---
SW attended clinical rounds. Patient remains intubated. SW will continue to follow.
--- NOTE | 2019-03-06 09:30 | NUR ---
Patient with episode of tachypnea while in [facility] care with RR ranging from 50-60. Support provided at bedside with positive response from patient who is able to slow her rate.
--- NOTE | 2019-03-06 09:50 | NUR ---
Updated provided to poison control at this time. No further recommendations made.
--- NOTE | 2019-03-06 10:14 | NUR ---
Patient aborted from smart care secondary to apnea. RT notified.
--- NOTE | 2019-03-06 10:15 | NUR ---
Patient returned to CMV mode on ventilator by RT per VORB by Dr. Molina.
--- NOTE | 2019-03-06 10:27 | NUR ---
Patient calls and is provided update to POC. Questions asked are answered. is provided education regarding psychiatric vistiation and protocols. He verbalizes understanding.
--- NOTE | 2019-03-06 11:47 | NUR ---
Dr. Molina called regarding patient's alertness. Report to include patient following all commands, communicating effectively with staff, and expressing desire for extubation with gestures. MD provides VORB for extubation at this time and RT is notified.
--- NOTE | 2019-03-06 12:28 | NUR ---
Patient extubated by this RN and RT Moni. Patient oral and deep suctioning provided by RT prior to extubation and patient coughs and clears secretions with success immediately following. She is placed on 4L O2 per oxymask. She is able to speak. Care ongoing.
--- NOTE | 2019-03-06 12:30 | NUR ---
Patient room stripped per suicide/psych policy. Drawers locked, sharps and tubing removed. Monitor cable slack is secured with zip ties. Trash bags are all replaced with paper. Psychiatric visitation policy reviewed with patient and she verbalizes understanding. Care ongoing.
--- NOTE | 2019-03-06 13:33 | NUR ---
PT EXTUBATED AT 1228 PER MD ORDER. PT SUCTIONED PRE AND POST EXTUBATION. BLBS CLEAR AND EQUAL. NO STRIDOR. PT PLACED ON 4L OXYMASK. SPO2 100%, HR 76, RR 15. NO SIGNS OF DISTRESS POST EXTUBATION.
--- NOTE | 2019-03-06 14:00 | NUR ---
Patient with anxiety and tachypnea. Support provided at bedside and patient calms.
--- NOTE | 2019-03-06 14:40 | NUR ---
Consult called to [facility] for psych. screen. Call back number provided. State they will call when screener is on her way.
--- NOTE | 2019-03-06 15:25 | NUR ---
Patient resting calmly with eyes closed. Denies needs at this time.
--- NOTE | 2019-03-06 15:47 | NUR ---
Gavin MarrMargaret) here at this time.
--- NOTE | 2019-03-06 16:45 | NUR ---
See SS note regarding update to POC, screening and transfer.
--- NOTE | 2019-03-06 16:45 | NUR ---
PIETER spoke to Kusum at [facility] to inquire if Kusum knew of any inpatient psych units that were covered by [facility]. Kusum referred SW to Carol Miller, who is the Director of [employer] ([phone]). PIETER contacted Carol and after hearing a brief history about patient, she suggested more of a half-way (4 week) [facility] psych treatment center. Carol said that there are no facilities in [place] that provide a animal care taker treatment program. Carol reported that if this is the route patient and family would like to go, she can arrange everything. PIETER reported that she would like to speak with patient's before utilizing her services. PIETER then spoke with [facility] screener, Margaret, and she agrees that patient would benefit from a half-way inpatient psych treatment program. Margaret will screen patient when she is medically cleared. PIETER provided Orly's phone number to Margaret. PIETER then contacted patient's , Alfredo, to give him and update on the conversations PIETER has had with Carol and Margaret. He reports that he is open to "anything that would help patient get better." PIETER will follow up with Alfredo tomorrow after psych screen.
--- NOTE | 2019-03-06 17:00 | NUR ---
Patient drinks cup of hot chocolate per request and promptly vomits its contents up.
--- NOTE | 2019-03-06 17:00 | NUR ---
Patient updated to POC to include screeing process. Patient denies questions at this time. Care onoging.
[2019-03-06 17:13] LABS: MAGNESIUM 1.9 mg/dL (1.6-2.3); POTASSIUM 4.1 mmol/L (3.4-5.0)
--- NOTE | 2019-03-06 17:33 | NUR ---
Patient reports continued nausea. See MAR for orders and administration of antiemetic.
--- NOTE | 2019-03-06 18:13 | NUR ---
Entered patient's room to administered zofran as ordered. Patient sleeping. When woken, denies nausea at this time.
--- NOTE | 2019-03-06 19:05 | NUR ---
Bedside report received from ZAHEER Mcdaniel.
--- NOTE | 2019-03-06 20:00 | NUR ---
Assessment complete. Patient sleeps between disturbances. Awakens easily to noise in the room. She is alert and oriented x4. She has complaints of a headache, SUDEEP was called for order for tylenol. To be provided. Assessment reveals clear lungs sounds with diminished bases. Active bowel sounds, and normal heart rate and rhythm. Patient still has some edema in her hands, but is improving. Patient is tachypneic with a rate of 24, but is in no distress. No further needs at this time. Will continue to monitor. Call light within reach.
[2019-03-07] VITALS (17 sets, daily range): BP systolic 97–131; BP diastolic 62–89; PULSE 46–80; TEMP 98.1–100.5
--- NOTE | 2019-03-07 | NUR ---
Upon entering the room patient is sleeping soundly, no signs of distress. Patient awakens easily to her name. Assessment complete. Patient's body feels much less hot than it did previously in the shift. Temperature back within normal range at 98.6 orally. No changes from previous exam. Vitals remain stable and WNL. Patient states that she is feeling much better since the tylenol and zofran. No further needs at this time. Will continue to monitor. Call light within reach.
--- NOTE | 2019-03-07 01:50 | NUR ---
Poison control calls at this time to check in on the patient. Provided most recent vitals and let them know how patient is doing. No further questions at this time.
--- NOTE | 2019-03-07 04:00 | NUR ---
Patient asleep at this time. Awakens easily to name. No signs of distress. No complaints of pain. Assessment complete. No changes from previous exam. Vitals have remained stable and urine output is starting to increase again. offered patient some water, she accepted. Patient has no further needs at this time. Will continue to monitor. Call light within reach.
[2019-03-07 06:06] LABS: BASO % 0.8 % (0.0-2.0); EOS # 0.1 (0.0-0.7); EOS % 2.5 % (0-4.0); GRAN # 2.4 (1.4-6.5); LYMPH # 1.6 (1.2-3.4); LYMPH % 33.5 % (20.0-51.0); MEAN CELL VOLUME 88 fl (80.0-100.0); MEAN CORPUSCULAR HEMOGLOBIN 28 pg (27.0-31.0); MEAN CORPUSCULAR HGB CONC 32 g/dl (33.0-37.0); MEAN PLATELET VOLUME 10.6 fl (7.4-10.4); MONO # 0.6 (0.1-0.6); MONO % 13.2 % (1.7-9.3); PLATELET COUNT 140 K/mm3 (130-400); RED BLOOD COUNT 3.57 M/mm3 (4.10-5.30); REDCELL DISTRIBUTION WIDTH-CV 12.4 % (11.5-14.5)
[2019-03-07 06:09] LABS: HEMATOCRIT 31.5 % (37.0-47.0)
[2019-03-07 06:33] LABS: BILIRUBIN,TOTAL 0.3 mg/dL (0.0-1.0); CREATININE, serum 0.84 (0.52-1.25); MAGNESIUM 1.7 mg/dL (1.6-2.3); PHOSPHOROUS 3.4 mg/dL (2.5-4.5); POTASSIUM 3.8 mmol/L (3.4-5.0); TOTAL PROTEIN 5.6 gm/dL (6.4-8.2)
--- NOTE | 2019-03-07 07:00 | NUR ---
Bedside report received from ZAHEER Irene.
--- NOTE | 2019-03-07 07:12 | NUR ---
Bedside report given to ZAHEER Phillips
--- NOTE | 2019-03-07 07:35 | NUR ---
Assessment complete, patient resting in bed, rolling herself from side to side for comfort independently, patient reports she will be safe from self harm while here, fall precautions in place, suicide precautions in place, bed alarm on.
--- NOTE | 2019-03-07 08:38 | NUR ---
DavidPT at bedside.
--- NOTE | 2019-03-07 10:00 | NUR ---
ElvinPT at bedside.
--- NOTE | 2019-03-07 10:19 | NUR ---
SW attended clinical rounds. Patient understands that she will likely be sent to an inpatient psych unit once she is medically cleard and she is agreeable to this plan. SW will follow up with patient after she is seen by Margaret Alonso meets with patient.
--- NOTE | 2019-03-07 11:00 | NUR ---
Poison control called for update.
--- NOTE | 2019-03-07 12:20 | NUR ---
RHONDA Hernandez back to work with patient again.
--- NOTE | 2019-03-07 13:00 | NUR ---
Patient upto BSC, moves self to commode with one assist, doesn't put any weight on her legs, just moves body from bed to commode, patient pulls underwear up from laying position in bed. Bed alarm on, fall precautions in place, call light within reach.
--- NOTE | 2019-03-07 15:04 | NUR ---
To MRI via stretcher.
--- NOTE | 2019-03-07 16:22 | NUR ---
Patient back from MRI.
--- NOTE | 2019-03-07 16:28 | NUR ---
Patient reports nausea, zofran given as ordered.
--- NOTE | 2019-03-07 19:15 | NUR ---
Report given to ZAHEER Samuel.
--- NOTE | 2019-03-07 19:30 | NUR ---
PT STATES SHE CANNOT FEEL LEGS AND CANNOT MOVE THEM. 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 PULSES ARE PALPABLE BILAT AND CAP REFILL <3SEC. PT WAS ASSISTED TO BEDSIDE COMMODE WITH TWO-PERSON ASSIST. PT WAS ABLE TO PUSH HERSELF UP OFF BED AND PIVOT. UPON ASSESSMENT, WITHOUT TOUCHING PT, PT HAD MOVEMENT/FLEXION IN RIGHT GREAT TOE AND RIGHT LEG SLIGHTLY FLINCHED. WHEN PERFORMING BABINSKI, PT HAD SMALL FLEXION OF TOES IN BILAT FEET. WHEN ASSESSING SENSORY, PT HAS NO FEELING BELOW BILAT GREATER TROCHANTERS. PT IS ABLE TO RECOGNIZE WHEN SHE NEEDS TO URINATE AND WHEN GETTING PT OFF COMMODE, SHE WAS ABLE TO STATE SHE FELT URINE SPLASH ON HER BUTTOCK. PT IS A&O X3, DENIES SI. ADDITIONALLY, PT STATES SHE HAS MINIMAL ABD PAIN IN LEFT AND RIGHT LOWER QUADRANTS CURRENTLY RATING PAIN 3/10. PT STATES SHE HAS BEEN HAVING ISSUES X12 WEEKS AND WHEN SHE EASTS THE PAIN INCREASES TO 8/10. PT HAS REFUSED MULTIPLE OFFERS OF SNACKS, BUT WAS PROVIDED FRESH CUP OF WATER WHICH IS BEDSIDE. AT CURRENT PT IS PLEASANT AND COOPERATIVE.
[2019-03-08] VITALS (23 sets, daily range): BP systolic 100–130; BP diastolic 62–91; PULSE 41–66; TEMP 97.7–98
--- NOTE | 2019-03-08 03:34 | NUR ---
PTS BED ALARM IS SOUNDING, PT FEW MINUTES PRIOR WAS SLEEPING. UPON ENTERING RM, PT IS GRIMACING AND MOVING BILAT LEGS. PT STATES HER LEGS BURN AND FEEL LIKE PINS AND NEEDLES. PT RATES PAIN IN LEGS 8/10, NOTHING MAKES THE PAIN BETTER OR WORSE. PT STATES FEELING JUST RETURNED WHEN BED ALARM WENT OFF. PT STATES INITIALLY BURNING PAIN IS IN UPPER LEGS AND WHEN ASKED FOR CONFIRMATION A SECOND TIME WHERE THE LEGS HURT, PT STATES ALL OVER. 0337: HOSPITALIST CONTACTED TO GIVE UPDATES ON RETURN OF SENSORY AND NEW ONSET OF PAIN. ASKING FOR RECOMMENDATIONS FOR PAIN. 0343: PT ADMINISTERED PRN PO TYLENOL AND ICE PLACED ON PTS UPPER LEGS TOLERATED. 0347: WHILE IN PTS ROOM, PT APPEARS TO HAVE ATYPICAL SEIZURE-LIKE ACTIVITY ROCKING UPPER HALF OF BODY AND NOT RESPONDING. 6693-2115: PT'S EYES CLOSED, BUT EYELIDS FLUTTERING. WHEN LIFTING PT'S ARMS UP THEY APPEAR LIMP AND WHEN DROPPED, FIRST TIME HESITATION IN BOTH ARMS AND PT MOVED ARMS ON BED, WHEN DROPPED SECOND TIME, SLIGHT HESITATION IN RIGHT ARM. TOUCHING PT'S BILAT EYES, PT DID NOT SQUINT, BUT CONTINUALLY FLUTTERED EYES. PT DID SELDOMLY MOVE HANDS ON BED. 0350: ZAHEER SANCHES IN PT RM WITH IV ATIVAN TO ADMINISTER. WHEN RN ATTEMPTED TO GRAB PTS HAND, PT WAS FIGHTING RN TRYING TO FLEX LEFT ARM WHEN RN WAS TRYING TO EXTEND ARM. PT SP02 91-97% WITH GOOD WAVE FORM, POSSIBLE PT WAS HOLDING BREATH, OM AT 2L APPLIED, SP02 100% FOLLOWING. 0351: IMMEDIATELY WHEN ADMINISTERING ATIVAN, PT SEIZURE ACTIVITY STOPPED. HOWEVER, PT NOT RESPONDING. [id number]: PT'S BRIEF CHECK AND IS DRY. PT'S EYES CONTINUALLY FLUTTER. PT FLEXING BILAT TOES WHEN BABINSKI ATTEMPTED. HOWEVER, PT STILL DOES NOT GRIMACE WHEN STERNAL RUBBED. 0405: FROM OUTSIDE RM, PT WITNESSED SWALLOWING 0410: ZAHEER BRAND IN ROOM STERNAL RUBBING, PT FLUTTERING EYES. WHEN RN TOUCHED PTS RIGHT EYE, PTS LEFT EYE CONTINUED TO FLUTTER AND DID SQEEZE. 0415: PT NOT RESPONDING TO VERBAL 0420: PT OPENING EYES ON VERBAL COMMAND AND SQEEZING MY HANDS. 0500: PT OPENING EYES AND SQEEZING HANDS ON VERBAL COMMAND, BUT NOT VERBALIZING. PT NODS YES WHEN ASKED IF LEGS STILL BURN.
[2019-03-08 05:54] LABS: BASO % 0.8 % (0.0-2.0); EOS # 0.2 (0.0-0.7); EOS % 4.3 % (0-4.0); GRAN # 1.8 (1.4-6.5); GRAN % 46.6 % (42.2-75.2); LYMPH # 1.5 (1.2-3.4); LYMPH % 37.6 % (20.0-51.0); MEAN CELL VOLUME 87 fl (80.0-100.0); MEAN CORPUSCULAR HEMOGLOBIN 29 pg (27.0-31.0); MEAN CORPUSCULAR HGB CONC 33 g/dl (33.0-37.0); MEAN PLATELET VOLUME 10.5 fl (7.4-10.4); MONO # 0.4 (0.1-0.6); MONO % 10.7 % (1.7-9.3); PLATELET COUNT 142 K/mm3 (130-400); RED BLOOD COUNT 3.46 M/mm3 (4.10-5.30); REDCELL DISTRIBUTION WIDTH-CV 12.4 % (11.5-14.5)
[2019-03-08 05:57] LABS: HEMATOCRIT 30.1 % (37.0-47.0)
[2019-03-08 06:04] LABS: ALBUMIN 3.1 gm/dL (3.5-5.0); BILIRUBIN,TOTAL 0.2 mg/dL (0.0-1.0); CALCIUM 8.5 mg/dL (8.4-10.2); CREATININE, serum 0.76 (0.52-1.25); POTASSIUM 3.5 mmol/L (3.4-5.0); TOTAL PROTEIN 5.7 gm/dL (6.4-8.2)
[2019-03-08 06:20] LABS: PROLACTIN 24.6 ng/mL (3.0-18.6)
--- NOTE | 2019-03-08 09:05 | NUR ---
Dr Vázquez in to see pt at this time.
--- NOTE | 2019-03-08 10:19 | NUR ---
Dr Green in to see pt. Pt medically cleared for psych placement.
--- NOTE | 2019-03-08 17:40 | NUR ---
Pt was screened by [facility] and will need placement per staff. Following screen, pt very upset and crying. Asked pt what was wrong and she states "I can't take this anymore." Asked pt what she was meaning and she states "I'm not safe anymore. I will do whatever I can to ." Pt to be 1 on 1 observation at this time.
--- NOTE | 2019-03-08 18:25 | NUR ---
Updated housekeeping and laundry team leader and hospitalist team regarding pts recent changes in behavior and actively threatening suicide. Dave with [facility] also notified and has changed placement from voluntary to involuntary at this time.
--- NOTE | 2019-03-08 19:00 | NUR ---
Report received from ZAHEER Reed. Went into room to see patient. Patient lying on her side facing window with hands covering her face. Stated we are doing shift change and asked about any needs at this time. Patient shook head no when asked if she needed anything. Will stay at bedside due to previous statments of suicidal thoughts.
--- NOTE | 2019-03-08 19:08 | NUR ---
Report given to Mandy SCHWAB and care transfered.
--- NOTE | 2019-03-08 20:10 | NUR ---
Patient refused all evening medications and Ensure supplement. Hospitalist notified.
--- NOTE | 2019-03-08 20:30 | NUR ---
Received call from Dave, a screener from [facility]. Faxed over updated paperwork which reflects updated status from voluntary to involuntary. Notified that she would be placed at [facility] but their screeners are not available until after 10 am on 03/09/19. Will have to wait until that time to arrange any transfer.
--- NOTE | 2019-03-08 21:05 | NUR ---
Patient lying on back and pulled blanket over head. Could not see hands but could not see movment under the blanket. Requested patient not cover face with blanket. Patient stated "no!" then quickly turned to side. Could see face partially at this time and could observe hand on forehead. VS at baseline. Will continue to monitor.
[2019-03-09] VITALS (8 sets, daily range): BP systolic 101–141; BP diastolic 60–94; PULSE 40–48
--- NOTE | 2019-03-09 03:17 | NUR ---
Patient assisted up to the bathroom; required standby assist only, and voided in toilet. Offered fresh ice water and patient accepted. Patient mostly responds by shaking head yes or no. Uses only very short and minimal verbal responses. Cooperative with cares. Will continue to monitor.
[2019-03-09 04:47] LABS: BASO # 0.1 (0.0-0.2); BASO % 1.1 % (0.0-2.0); EOS # 0.1 (0.0-0.7); EOS % 2.9 % (0-4.0); GRAN # 2.2 (1.4-6.5); GRAN % 49.1 % (42.2-75.2); HEMATOCRIT 31.1 % (37.0-47.0); HEMOGLOBIN 10.4 g/dl (12.5-16.0); LYMPH # 1.6 (1.2-3.4); LYMPH % 36.8 % (20.0-51.0); MEAN CELL VOLUME 87 fl (80.0-100.0); MEAN CORPUSCULAR HEMOGLOBIN 29 pg (27.0-31.0); MEAN CORPUSCULAR HGB CONC 33 g/dl (33.0-37.0); MEAN PLATELET VOLUME 10.4 fl (7.4-10.4); MONO # 0.4 (0.1-0.6); MONO % 9.9 % (1.7-9.3); PLATELET COUNT 150 K/mm3 (130-400); RED BLOOD COUNT 3.59 M/mm3 (4.10-5.30); REDCELL DISTRIBUTION WIDTH-CV 12.2 % (11.5-14.5)
--- NOTE | 2019-03-09 04:48 | NUR ---
bulk mail technician here to draw am labs. Labs drawn without incident. Patient not not expressing any suicidal ideations or actions at this time, and has not throughout the night. Will continue to monitor.
[2019-03-09 04:57] LABS: CALCIUM 8.4 mg/dL (8.4-10.2); CREATININE, serum 0.81 (0.52-1.25); POTASSIUM 3.8 mmol/L (3.4-5.0)
--- NOTE | 2019-03-09 07:18 | NUR ---
Report received from Mandy SCHWAB and care resumed. Pt resting upon assessment. Denies any pain. Pt continues to have flat affect and not making eye contact. Did offer pt to freshen up and she accepted. Pt still refusing food at this time and does want to take any medications. Asked pt if she was still having thoughts of harming herself this morning. "Yes but not as strongly" was pt's reply. Will continue to closely monitor pt. Waiting on triage of OSH at this time.
--- NOTE | 2019-03-09 09:24 | NUR ---
Dr Lopez in to see pt at this time.
[2019-03-09] MEDS ORDERED: TYLENOL 325MG325 MG PO (14:12)
--- NOTE | 2019-03-09 15:48 | NUR ---
Pt central line removed and pt dressed. Pt sent with [facility] services for transport to OSH.
== END 2019-03-09 15:35 | DRG 918 ==
LOC: COL.ER 17:00 → ICU 18:11
PROVIDERS: Emergency Medicine; Internal Medicine Pulmonary Disease; Nurse Practitioner Family; ADMIT Family Medicine
PROC: 0BH17EZ Insertion of Endotracheal Airway into Trachea, Via Natural or Artificial Opening (ICD-10-PCS; principal; 2019-03-04)
PROC: 5A1945Z Respiratory Ventilation, 24-96 Consecutive Hours (ICD-10-PCS; 2019-03-04)
DX: T43.212A Poisoning by selective serotonin and norepinephrine reuptake inhibitors, intentional self-harm, initial encounter (principal); D68.51 Activated protein C resistance; T43.022A Poisoning by tetracyclic antidepressants, intentional self-harm, initial encounter; F32.9 Major depressive disorder, single episode, unspecified; G40.909 Epilepsy, unspecified, not intractable, without status epilepticus; Y92.009 Unspecified place in unspecified non-institutional (private) residence as the place of occurrence of the external cause; E87.6 Hypokalemia; R19.7 Diarrhea, unspecified; E83.42 Hypomagnesemia; E16.2 Hypoglycemia, unspecified; F44.4 Conversion disorder with motor symptom or deficit
CPT/HCPCS: 99222-AI; 99232-AI; 99239; A9585; C1751; J0330; J1650; J1953; J2060; J2250; J2405; J3010; J3475; J3480; J7030; J7040; J7042

== ENCOUNTER 2019-09-09 14:48 | Emergency (ER) | payer OTHER ==
[~2019-09-09] VITALS: Ht 162.6 cm; Wt 52.3 kg
[~2019-09-09 14:48] MED LIST changes: +ATIVAN 1MG T1 MG/TAB PO; +TYLENOL 325MG325 MG PO
[2019-09-09 14:53] VITALS: TEMP 98.5
[2019-09-09 16:06] LABS: BASO % 0.3 % (0.0-2.0); EOS % 0.1 % (0-4.0); GRAN # 5.3 (1.4-6.5); HEMATOCRIT 40.2 % (37.0-47.0); HEMOGLOBIN 13.8 g/dl (12.5-16.0); LYMPH # 1.2 (1.2-3.4); LYMPH % 17.8 % (20.0-51.0); MEAN CELL VOLUME 84 fl (80.0-100.0); MEAN CORPUSCULAR HEMOGLOBIN 29 pg (27.0-31.0); MEAN CORPUSCULAR HGB CONC 34 g/dl (33.0-37.0); MEAN PLATELET VOLUME 10.4 fl (7.4-10.4); MONO # 0.4 (0.1-0.6); MONO % 5.5 % (1.7-9.3); PLATELET COUNT 147 K/mm3 (130-400); RED BLOOD COUNT 4.78 M/mm3 (4.10-5.30); REDCELL DISTRIBUTION WIDTH-CV 13.6 % (11.5-14.5)
[2019-09-09 16:37] LABS: ACETAMINOPHEN < 10 ug/mL (10-30); ALCOHOL(ethanol),MEDICAL < 10 mg/dL; SALICYLATE < 1.0 mg/dL
[2019-09-09 16:38] LABS: PROLACTIN 41.7 ng/mL (3.0-18.6)
[2019-09-09 17:10] LABS: ALBUMIN 4.8 gm/dL (3.5-5.0); BILIRUBIN,TOTAL 0.4 mg/dL (0.0-1.0); CALCIUM 9.8 mg/dL (8.4-10.2); CREATININE, serum 1.07 (0.52-1.25); POTASSIUM 3.8 mmol/L (3.4-5.0); TOTAL PROTEIN 8.4 gm/dL (6.4-8.2)
[2019-09-09 17:23] LABS: COLLECTION METHOD CLEAN CATCH
[2019-09-09 17:31] LABS: PH 6 (5-8); SQUAMOUS EPITHELIAL None Seen /hpf; URINE APPEARANCE Clear; URINE BACTERIA None Seen /hpf; URINE BILIRUBIN Negative (NEGATIVE); URINE BLOOD Negative (NEGATIVE); URINE COLOR Yellow; URINE GLUCOSE Negative (NEGATIVE); URINE KETONE Trace (NEGATIVE); URINE LEUKOCYTE ESTERASE Negative (NEGATIVE); URINE NITRATE Negative (NEGATIVE); URINE PROTEIN(semi-quant) Negative (NEGATIVE); URINE RBC None Seen /hpf; URINE UROBILINOGEN Negative (NEGATIVE)
[2019-09-09 18:17] LABS: TRICYCLIC ANTIDEPRESS URINE POSITIVE
[2019-09-09 18:20] VITALS: BP 105/71; PULSE 76
== END 2019-09-09 18:20 | disposition home or self-care (01) ==
LOC: COL.ER 14:48
PROVIDERS: Emergency Medicine
DX: R41.82 Altered mental status, unspecified (principal)
CPT/HCPCS: J2405; J7030

== ENCOUNTER → 2019-11-12 | Emergency (ER) | payer OTHER ==
[~2019-11-12] VITALS: Ht 162.6 cm; Wt 53.6 kg
[~2019-11-12] MED LIST changes: +MELATIN 3 MG-11 TAB PO; +REMERON30 MG PO; +REXULTI1 MG PO
[2019-11-12 05:11] VITALS: BP 123/78; PULSE 121; TEMP 98.9
[2019-11-12 06:42] LABS: RED BLOOD COUNT 4.15 M/mm3 (4.10-5.30)
[2019-11-12 06:43] LABS: BASO # 0.1 (0.0-0.2); BASO % 0.9 % (0.0-2.0); EOS % 0.2 % (0-4.0); GRAN # 3.5 (1.4-6.5); HEMOGLOBIN 11.9 g/dl (12.5-16.0); LYMPH # 1.2 (1.2-3.4); LYMPH % 23.2 % (20.0-51.0); MEAN CELL VOLUME 85 fl (80.0-100.0); MEAN CORPUSCULAR HEMOGLOBIN 29 pg (27.0-31.0); MEAN CORPUSCULAR HGB CONC 34 g/dl (33.0-37.0); MEAN PLATELET VOLUME 9.8 fl (7.4-10.4); MONO # 0.5 (0.1-0.6); MONO % 9.3 % (1.7-9.3); PLATELET COUNT 162 K/mm3 (130-400)
[2019-11-12 06:45] LABS: HEMATOCRIT 35.4 % (37.0-47.0)
[2019-11-12 07:01] LABS: CALCIUM 8.7 mg/dL (8.4-10.2); CREATININE, serum 1.15 (0.52-1.25); POTASSIUM 3.3 mmol/L (3.4-5.0)
== END ==
LOC: COL.ER 05:00
PROVIDERS: Emergency Medicine
DX: F41.9 Anxiety disorder, unspecified (principal); G40.909 Epilepsy, unspecified, not intractable, without status epilepticus; F32.9 Major depressive disorder, single episode, unspecified; Z98.890 Other specified postprocedural states
CPT/HCPCS: J1630; J7030

== ENCOUNTER 2019-11-14 15:27 | Emergency (ER) | payer OTHER ==
[~2019-11-14] VITALS: Ht 162.6 cm; Wt 52.7 kg
[2019-11-14 15:33] VITALS: BP 123/87; TEMP 98.7
[2019-11-14 16:10] LABS: BASO % 0.5 % (0.0-2.0); EOS # 0.1 (0.0-0.7); EOS % 1.4 % (0-4.0); GRAN # 3.5 (1.4-6.5); GRAN % 52.3 % (42.2-75.2); HEMATOCRIT 37.9 % (37.0-47.0); HEMOGLOBIN 12.6 g/dl (12.5-16.0); LYMPH # 2.6 (1.2-3.4); LYMPH % 39.5 % (20.0-51.0); MEAN CELL VOLUME 87 fl (80.0-100.0); MEAN CORPUSCULAR HEMOGLOBIN 29 pg (27.0-31.0); MEAN CORPUSCULAR HGB CONC 33 g/dl (33.0-37.0); MEAN PLATELET VOLUME 9.5 fl (7.4-10.4); MONO # 0.4 (0.1-0.6); MONO % 6.1 % (1.7-9.3); PLATELET COUNT 203 K/mm3 (130-400); RED BLOOD COUNT 4.36 M/mm3 (4.10-5.30)
[2019-11-14 16:24] LABS: ACETAMINOPHEN < 10 ug/mL (10-30); ALANINE AMINOTRANSFERASE 17 U/L (9-52); ALBUMIN 4.9 gm/dL (3.5-5.0); ALCOHOL(ethanol),MEDICAL < 10 mg/dL; ALKALINE PHOSPHATASE 54 U/L (50-136); ANION GAP 16 mmol/L (7-16); AST,SGOT 26 U/L (15-37); BILIRUBIN,TOTAL 0.3 mg/dL (0.0-1.0); BLOOD UREA NITROGEN 19 mg/dL (7-17); CALCIUM 9.6 mg/dL (8.4-10.2); CARBON DIOXIDE 25 mmol/L (22-30); CHLORIDE 101 mmol/L (98-107); CREATININE, serum 1.13 (0.52-1.25); GLUCOSE 93 mg/dL (74-106); SALICYLATE < 1.0 mg/dL; SODIUM 142 mmol/L (137-145); TOTAL PROTEIN 8.3 gm/dL (6.4-8.2)
[2019-11-14 18:34] VITALS: PULSE 98
== END 2019-11-14 18:34 | disposition home or self-care (01) ==
LOC: COL.ER 15:27
PROVIDERS: Emergency Medicine
DX: F41.9 Anxiety disorder, unspecified (principal); E87.6 Hypokalemia; G40.909 Epilepsy, unspecified, not intractable, without status epilepticus
CPT/HCPCS: J1630; J2060; J7030

== ENCOUNTER 2019-12-11 19:36 | Emergency (ER) | payer OTHER ==
[~2019-12-11] VITALS: Ht 162.6 cm; Wt 54.5 kg
[2019-12-11 19:39] VITALS: TEMP 98.3
[2019-12-11] MEDS ORDERED: HALDOL 2MG T2 MG/TAB PO (19:41)
[2019-12-11] MEDS ORDERED: KLONOPIN 0.5MG0.5 MG PO (19:42)
[2019-12-11 20:40] LABS: COLLECTION METHOD CLEAN CATCH
[2019-12-11 21:00] LABS: ALANINE AMINOTRANSFERASE 18 U/L (9-52); ALBUMIN 4.5 gm/dL (3.5-5.0); ALKALINE PHOSPHATASE 49 U/L (50-136); ANION GAP 10 mmol/L (7-16); AST,SGOT 27 U/L (15-37); BILIRUBIN,TOTAL 0.3 mg/dL (0.0-1.0); BLOOD UREA NITROGEN 18 mg/dL (7-17); CALCIUM 9.5 mg/dL (8.4-10.2); CARBON DIOXIDE 34 mmol/L (22-30); CHLORIDE 98 mmol/L (98-107); CREATININE, serum 1.01 (0.52-1.25); GLUCOSE 93 mg/dL (74-106); LIPASE 37 U/L (23-300); PH 8 (5-8); POTASSIUM 3.9 mmol/L (3.4-5.0); SODIUM 142 mmol/L (137-145); SQUAMOUS EPITHELIAL 0-2 /hpf; TOTAL PROTEIN 7.7 gm/dL (6.4-8.2); URINE APPEARANCE Clear; URINE BACTERIA Rare /hpf; URINE BILIRUBIN Negative (NEGATIVE); URINE BLOOD Negative (NEGATIVE); URINE COLOR Yellow; URINE GLUCOSE Negative (NEGATIVE); URINE KETONE Negative (NEGATIVE); URINE LEUKOCYTE ESTERASE Negative (NEGATIVE); URINE NITRATE Negative (NEGATIVE); URINE PROTEIN(semi-quant) Negative (NEGATIVE); URINE UROBILINOGEN Negative (NEGATIVE)
[2019-12-11 21:01] LABS: BASO % 0.6 % (0.0-2.0); C-REACTIVE PROTEIN 0.5 mg/dL (0.0-0.9); EOS # 0.1 (0.0-0.7); EOS % 1.6 % (0-4.0); GRAN # 2.3 (1.4-6.5); GRAN % 46.3 % (42.2-75.2); HEMOGLOBIN 12.1 g/dl (12.5-16.0); LYMPH % 39.7 % (20.0-51.0); MEAN CELL VOLUME 86 fl (80.0-100.0); MEAN CORPUSCULAR HEMOGLOBIN 29 pg (27.0-31.0); MEAN CORPUSCULAR HGB CONC 33 g/dl (33.0-37.0); MEAN PLATELET VOLUME 9.7 fl (7.4-10.4); MONO # 0.6 (0.1-0.6); MONO % 11.4 % (1.7-9.3); PLATELET COUNT 173 K/mm3 (130-400); RED BLOOD COUNT 4.25 M/mm3 (4.10-5.30); REDCELL DISTRIBUTION WIDTH-CV 12.7 % (11.5-14.5)
[2019-12-11 21:08] LABS: TROPONIN-I < 0.012 ng/mL (0.000-0.035)
[2019-12-11 21:09] LABS: HEMATOCRIT 36.7 % (37.0-47.0)
[2019-12-11 22:01] VITALS: BP 112/73; PULSE 72
[2019-12-11] MEDS ORDERED: PRIL40 PO (22:01)
== END 2019-12-11 22:07 | disposition home or self-care (01) ==
LOC: COL.ER 19:36
PROVIDERS: Emergency Medicine
DX: R10.13 Epigastric pain (principal); G40.909 Epilepsy, unspecified, not intractable, without status epilepticus
CPT/HCPCS: C9113; J2405; J3010; J7030

== ENCOUNTER 2020-04-05 09:44 | Observation (INO) | payer OTHER ==
[~2020-04-05] VITALS: Ht 167.6 cm; Wt 57.9 kg
[2020-04-05] VITALS (255 sets, daily range): BP systolic 105–127; BP diastolic 61–84; PULSE 74–94; TEMP 97.6–99.2; O2SAT 94–100
[~2020-04-05 09:44] MED LIST changes: +HALDOL 2MG T2 MG/TAB PO; +KLONOPIN 0.5MG0.5 MG PO
[2020-04-05 10:54] LABS: BASO # 0.1 (0.0-0.2); BASO % 0.6 % (0.0-2.0); EOS # 0.1 (0.0-0.7); EOS % 1.4 % (0-4.0); GRAN # 5.2 (1.4-6.5); GRAN % 61.1 % (42.2-75.2); HEMATOCRIT 41.3 % (37.0-47.0); HEMOGLOBIN 13.5 g/dl (12.5-16.0); LYMPH # 2.4 (1.2-3.4); LYMPH % 28.6 % (20.0-51.0); MEAN CELL VOLUME 87 fl (80.0-100.0); MEAN CORPUSCULAR HEMOGLOBIN 29 pg (27.0-31.0); MEAN CORPUSCULAR HGB CONC 33 g/dl (33.0-37.0); MEAN PLATELET VOLUME 9.7 fl (7.4-10.4); MONO # 0.7 (0.1-0.6); MONO % 7.9 % (1.7-9.3); PLATELET COUNT 221 K/mm3 (130-400); RED BLOOD COUNT 4.74 M/mm3 (4.10-5.30); REDCELL DISTRIBUTION WIDTH-CV 13.9 % (11.5-14.5)
[2020-04-05 11:09] LABS: ACETAMINOPHEN < 10 ug/mL (10-30); ALANINE AMINOTRANSFERASE 16 U/L (4-34); ALBUMIN 4.9 gm/dL (3.5-5.0); ALCOHOL(ethanol),MEDICAL < 10 mg/dL; ALKALINE PHOSPHATASE 57 U/L (50-136); ANION GAP 15 mmol/L (7-16); AST,SGOT 27 U/L (15-37); BILIRUBIN,TOTAL 0.4 mg/dL (0.0-1.0); BLOOD UREA NITROGEN 16 mg/dL (7-17); C-REACTIVE PROTEIN < 0.5 mg/dL (0.0-0.9); CALCIUM 9.2 mg/dL (8.4-10.2); CARBON DIOXIDE 25 mmol/L (22-30); CHLORIDE 99 mmol/L (98-107); CREATININE, serum 1.18 (0.52-1.25); GLUCOSE 109 mg/dL (74-106); POTASSIUM 3.2 mmol/L (3.4-5.0); SALICYLATE < 1.0 mg/dL; SODIUM 139 mmol/L (137-145); TOTAL PROTEIN 8.9 gm/dL (6.4-8.2)
[2020-04-05 13:45] LABS: COLLECTION METHOD CLEAN CATCH
[2020-04-05 13:51] LABS: PH 6 (5-8); SQUAMOUS EPITHELIAL None Seen /hpf; URINE APPEARANCE Clear; URINE BACTERIA None Seen /hpf; URINE BILIRUBIN Negative (NEGATIVE); URINE BLOOD Negative (NEGATIVE); URINE COLOR Yellow; URINE GLUCOSE Negative (NEGATIVE); URINE KETONE Negative (NEGATIVE); URINE LEUKOCYTE ESTERASE Negative (NEGATIVE); URINE NITRATE Negative (NEGATIVE); URINE PROTEIN(semi-quant) Negative (NEGATIVE); URINE RBC 0-2 /hpf; URINE UROBILINOGEN Negative (NEGATIVE)
[2020-04-05 14:05] LABS: TRICYCLIC ANTIDEPRESS URINE NEGATIVE
[2020-04-05] MEDS ORDERED: MELATONIN3 M1 PO (15:35)
--- NOTE | 2020-04-05 15:42 | NUR ---
Pt arrived to room at this time via cart with ER staff. Transferred to bed with assistance of 3 nurses, pt remains unresponsive with eyes closed, VSS. Belongings placed in locked cabinet in ICU. Called Alfredo regarding visitor policy and pt location.
--- NOTE | 2020-04-05 18:20 | NUR ---
Pt was alert and oriented for a span of time this afternoon when and Trey were here. Pt has since become sleepy and lethargic again. Vitals remain stable. Resting in bed. Seizure precuations and bed alarm in place. IVF to LW. WIll give bedside shift report to nightshift nurse who will resume care.
--- NOTE | 2020-04-05 21:40 | NUR ---
At 2103, this RN entered the PT's room and noted the PT to be shaking in bed, arms bent up at sides. Said PT's name several times, no response. Sternal rub, no response. This RN turned the patient on her side, noted PT to be tachycardic in the 110's, SpO2 in the mid-90's. I then called household appliance assembler at 2105 for assistance in the room, suction and O2 supplies brought into room. CORIN Miguel called at 2107 to observe this potential seizure activity. Provider at bedside at 2109 to assess patient, 1mg IV of Ativan ordered. PT continued to shake in bed but no posturing was noted, O2 remained stable, limbs flexible to repositioning. EKG, lactic ordered and obtained. Will continue to monitor for further potential seizure activity.
--- NOTE | 2020-04-05 22:15 | NUR ---
PT opening eyes and looking around the room, still not answering questions. Placed call light within PT reach and instructed to press the red button if she needs help, PT nodded yes.
[2020-04-06] VITALS (156 sets, daily range): BP systolic 91–109; BP diastolic 57–72; PULSE 60–75; TEMP 97.8–98.8; O2SAT 73–99
[2020-04-06 05:09] LABS: BASO % 0.6 % (0.0-2.0); EOS # 0.1 (0.0-0.7); EOS % 2.4 % (0-4.0); GRAN # 2.1 (1.4-6.5); GRAN % 42.1 % (42.2-75.2); LYMPH # 2.5 (1.2-3.4); LYMPH % 48.9 % (20.0-51.0); MEAN CELL VOLUME 88 fl (80.0-100.0); MEAN CORPUSCULAR HGB CONC 32 g/dl (33.0-37.0); MEAN PLATELET VOLUME 9.8 fl (7.4-10.4); MONO # 0.3 (0.1-0.6); MONO % 5.8 % (1.7-9.3); PLATELET COUNT 151 K/mm3 (130-400); RED BLOOD COUNT 3.93 M/mm3 (4.10-5.30); REDCELL DISTRIBUTION WIDTH-CV 14.1 % (11.5-14.5)
[2020-04-06 05:16] LABS: HEMATOCRIT 34.6 % (37.0-47.0); HEMOGLOBIN 11.2 g/dl (12.5-16.0); MEAN CORPUSCULAR HEMOGLOBIN 28 pg (27.0-31.0)
[2020-04-06 05:25] LABS: ALBUMIN 3.6 gm/dL (3.5-5.0); BILIRUBIN,TOTAL 0.4 mg/dL (0.0-1.0); CALCIUM 8.1 mg/dL (8.4-10.2); CREATININE, serum 0.92 (0.52-1.25); POTASSIUM 4.3 mmol/L (3.4-5.0); TOTAL PROTEIN 6.6 gm/dL (6.4-8.2)
--- NOTE | 2020-04-06 07:00 | NUR ---
Report given to ZAHEER Garvin.
--- NOTE | 2020-04-06 07:15 | NUR ---
Report received outside of patient's door from ZAHEER Montano. Patient is resting in bed. Call light and bedside table are within reach. Will continue to monitor patient throughout shift.
--- NOTE | 2020-04-06 08:30 | NUR ---
Richelle RN, ICU steffen house supervisor, spoke with Donnie, the patient's and informed him he could come and visit his but if she should get agitated, he would be asked to leave.
--- NOTE | 2020-04-06 09:13 | NUR ---
Patient was cooperative with care and answered questions appropriately, however; patient did not know the day of the week or the name of the hospital she was in but was able to tell this nurse she was in the hospital and she lived in [place]. This nurse will continue to monitor patient throughout shift.
--- NOTE | 2020-04-06 10:15 | NUR ---
Patient is more alert and not as drowsy. Patient is A & O x 3 but denies knowing what brought her to the hospital. Patient also denies any suicidal ideations but did admit she has had thoughts of harming herself in the last month or so and denies having a plan. This nurse will continue to monitor patient throughout shift.
--- NOTE | 2020-04-06 11:53 | NUR ---
Patient was visiting with and this nurse did not interrupt them so they could have some privacy. This nurse did keep an eye on the patient throughout the visit.
--- NOTE | 2020-04-06 13:55 | NUR ---
Patient has been discharged to home. Patient has all personal belongings and room has been cleared. This nurse walked the patient to the ED door where she was met by her .
--- NOTE | 2020-04-06 14:51 | NUR ---
Advertising Operations Manager met with patient to discuss discharge planning. Patient lives in [place] with her , Aamir (ph#[phone]) and their five year old daughter. Patient receives primary care from [facility] along with her medications. Patient states [facility] prescribes some of her medications. Patient does not use any DME and reports independence with ADLS. Patient does not have Advance Directives. Patient had psych consult and recommendation is that patient follow up with the [facility] upon discharge. SW contacted [facility] and provided patient's name and . [facility] is expecting patient sometime today. Patient is agreeable to this plan and advised her can take her there today. SW provided address and phone number to the [facility] unit. SW also contacted patient's , Aamir who is in agreement with this plan and states he will take her there upon discharge. PIETER also provided address and phone number to Aamir. No additional needs at this time.
== END 2020-04-06 13:55 | disposition home or self-care (01) ==
LOC: COL.ER 09:44 → ICU 13:31
PROVIDERS: Physician Assistant; ADMIT Hospitalist
DX: F41.1 Generalized anxiety disorder (principal)
CPT/HCPCS: J1650; J2060; J3480; J7030

== ENCOUNTER 2020-06-08 11:22 | Inpatient (IN) | payer OTHER ==
[~2020-06-08] VITALS: Ht 162.6 cm; Wt 57.1 kg
[~2020-06-08 11:22] MED LIST changes: +MELATONIN3 M1 PO
[2020-06-08 12:13] LABS: BASO % 0.5 % (0.0-2.0); EOS # 0.1 (0.0-0.7); EOS % 1.1 % (0-4.0); GRAN # 3.9 (1.4-6.5); GRAN % 47.5 % (42.2-75.2); HEMATOCRIT 38.1 % (37.0-47.0); HEMOGLOBIN 12.8 g/dl (12.5-16.0); LYMPH # 3.6 (1.2-3.4); LYMPH % 43.6 % (20.0-51.0); MEAN CELL VOLUME 87 fl (80.0-100.0); MEAN CORPUSCULAR HEMOGLOBIN 29 pg (27.0-31.0); MEAN CORPUSCULAR HGB CONC 34 g/dl (33.0-37.0); MEAN PLATELET VOLUME 9.7 fl (7.4-10.4); MONO # 0.6 (0.1-0.6); MONO % 7.1 % (1.7-9.3); PLATELET COUNT 237 K/mm3 (130-400); RED BLOOD COUNT 4.36 M/mm3 (4.10-5.30); REDCELL DISTRIBUTION WIDTH-CV 13.4 % (11.5-14.5)
[2020-06-08 12:21] LABS: ALANINE AMINOTRANSFERASE 14 U/L (4-34); ALBUMIN 4.4 gm/dL (3.5-5.0); ALKALINE PHOSPHATASE 50 U/L (50-136); ANION GAP 11 mmol/L (7-16); AST,SGOT 24 U/L (15-37); BILIRUBIN,TOTAL 0.5 mg/dL (0.0-1.0); BLOOD UREA NITROGEN 12 mg/dL (7-17); C-REACTIVE PROTEIN < 0.5 mg/dL (0.0-0.9); CALCIUM 8.9 mg/dL (8.4-10.2); CARBON DIOXIDE 26 mmol/L (22-30); CHLORIDE 100 mmol/L (98-107); CREATININE, serum 1.13 (0.52-1.25); GLUCOSE 107 mg/dL (74-106); LIPASE 40 U/L (23-300); POTASSIUM 3.6 mmol/L (3.4-5.0); SODIUM 137 mmol/L (137-145)
[2020-06-08 13:07] LABS: COLLECTION METHOD CLEAN CATCH
[2020-06-08 13:19] LABS: PH 7 (5-8); SQUAMOUS EPITHELIAL 0-2 /hpf; URINE APPEARANCE Clear; URINE BACTERIA None Seen /hpf; URINE BILIRUBIN Negative (NEGATIVE); URINE BLOOD Negative (NEGATIVE); URINE COLOR Straw; URINE GLUCOSE Negative (NEGATIVE); URINE KETONE Negative (NEGATIVE); URINE LEUKOCYTE ESTERASE Negative (NEGATIVE); URINE NITRATE Negative (NEGATIVE); URINE PROTEIN(semi-quant) Negative (NEGATIVE); URINE RBC 0-2 /hpf; URINE UROBILINOGEN Negative (NEGATIVE)
[2020-06-08 13:33] LABS: TRICYCLIC ANTIDEPRESS URINE NEGATIVE
[2020-06-08 17:23] VITALS: BP 116/70; PULSE 105; TEMP 99.5
--- NOTE | 2020-06-08 18:36 | NUR ---
Patient was admitted from ER for pelvic pain, unresponsive to conversation. not able to complete physical, history and medication reconciliation due to unresponsiveness. LR 125ML/HR.
[2020-06-08 19:45] VITALS: BP 118/62; PULSE 111
[2020-06-08 20:02] VITALS: BP 98/60; PULSE 104
--- NOTE | 2020-06-08 20:09 | NUR ---
Pt had a seizure for 17 minutes long, pt was lying on her bed, side rails were up, pt was shaky, closed eyes. Myriam, hospitalist and Dr. Vázquez was present while pt was having a seizure. Administered 1 mg ativan, 750 mg Depakote is running at the rate of 105 ml/hr and 3.5 lit oxygen on NC. Seizure precaution pads are applied. Pt is resting on bed.
--- NOTE | 2020-06-08 20:26 | NUR ---
Pt had a second episode of seizure starting from 2014 and ended at 2024. [address] Vázquez's order. Pt is lying on bed, closed eyes, vitals are charted.
[2020-06-08 20:29] VITALS: BP 122/67; PULSE 113
[2020-06-08 21:28] VITALS: BP 109/66; PULSE 87
--- NOTE | 2020-06-08 21:32 | NUR ---
Pt had a third episode of seizure starting at 2114 to 2123. 1 mg ativan IV given, keppra 1500 mg per 100 ml given. Pt is responsing and looking at her phone at this time. Vitals are recorded.
[2020-06-08 22:07] VITALS: BP 114/72; PULSE 92
--- NOTE | 2020-06-08 22:08 | NUR ---
Pt had a fourth episode of seizure starting from 2200 to 2205. 1 mg ativan IV given. Pt is responsive after seizure, looking at her phone. Vitals are recored just after the seizure.
--- NOTE | 2020-06-08 23:00 | NUR ---
Pt left via [facility], en route to [facility] to the Neuro ICU room #8. Care transferred into Dr. Hennessy, Neurologist. Verbal consent for transfer received over phone from Aamir with assistance of ZAHEER Padilla who acteed as second witness to the consent. Pt left with all belongings, transfer packet sent with patient. Report called by Charlene to accepting nurse. Images clouded via 3 day Blinds per crown and bridge dental lab technician.
--- NOTE | 2020-06-08 23:32 | NUR ---
Pt got transfered to [facility], EMS received her at around 2315. Pt was responsive while leaving the hospital. Pt papers were handed to EMS.
== END 2020-06-09 00:49 | disposition short-term general hospital (02) | DRG 694 ==
LOC: COL.ER 11:22 → MEDICAL 15:06
PROVIDERS: Family Medicine; ADMIT Hospitalist
DX: N13.30 Unspecified hydronephrosis (principal); G40.89 Other seizures; D68.51 Activated protein C resistance; F41.8 Other specified anxiety disorders; Z88.4 Allergy status to anesthetic agent; R33.9 Retention of urine, unspecified
CPT/HCPCS: 99222-AI; 99239; J1953; J2060; J2310; J2405; J7120; Q9967

== ENCOUNTER 2020-07-09 10:56 | Emergency (ER) | payer OTHER ==
[~2020-07-09] VITALS: Ht 165.1 cm; Wt 56.8 kg
[2020-07-09 11:00] VITALS: TEMP 98.3
[2020-07-09 11:28] LABS: BASO % 0.3 % (0.0-2.0); EOS % 0.1 % (0-4.0); GRAN # 5.9 (1.4-6.5); GRAN % 81.2 % (42.2-75.2); HEMATOCRIT 38.4 % (37.0-47.0); HEMOGLOBIN 12.6 g/dl (12.5-16.0); LYMPH # 0.9 (1.2-3.4); MEAN CELL VOLUME 89 fl (80.0-100.0); MEAN CORPUSCULAR HEMOGLOBIN 29 pg (27.0-31.0); MEAN CORPUSCULAR HGB CONC 33 g/dl (33.0-37.0); MEAN PLATELET VOLUME 9.9 fl (7.4-10.4); MONO # 0.5 (0.1-0.6); MONO % 6.1 % (1.7-9.3); PLATELET COUNT 145 K/mm3 (130-400); RED BLOOD COUNT 4.31 M/mm3 (4.10-5.30)
[2020-07-09 11:37] LABS: ALANINE AMINOTRANSFERASE 14 U/L (4-34); ALBUMIN 4.6 gm/dL (3.5-5.0); ALKALINE PHOSPHATASE 49 U/L (50-136); ANION GAP 14 mmol/L (7-16); AST,SGOT 23 U/L (15-37); BILIRUBIN,TOTAL 0.3 mg/dL (0.0-1.0); BLOOD UREA NITROGEN 7 mg/dL (7-17); CALCIUM 9.1 mg/dL (8.4-10.2); CARBON DIOXIDE 24 mmol/L (22-30); CHLORIDE 102 mmol/L (98-107); CREATININE, serum 0.98 (0.52-1.25); GLUCOSE 112 mg/dL (74-106); POTASSIUM 3.7 mmol/L (3.4-5.0); SODIUM 140 mmol/L (137-145); TOTAL PROTEIN 7.9 gm/dL (6.4-8.2)
[2020-07-09 11:50] LABS: PROLACTIN 48.3 ng/mL (3.0-18.6)
[2020-07-09 11:53] LABS: C-REACTIVE PROTEIN < 0.5 mg/dL (0.0-0.9)
[2020-07-09 12:36] LABS: VALPROIC ACID (DEPAKENE) 46.3 ug/mL (50.0-100.0)
[2020-07-09 13:12] LABS: COLLECTION METHOD CATHETER
[2020-07-09 13:21] LABS: MUCOUS Present /lpf; PH 7 (5-8); URINE APPEARANCE Hazy; URINE BACTERIA Rare /hpf; URINE BILIRUBIN Negative (NEGATIVE); URINE BLOOD Negative (NEGATIVE); URINE COLOR Yellow; URINE GLUCOSE Negative (NEGATIVE); URINE KETONE 1+ (NEGATIVE); URINE LEUKOCYTE ESTERASE Negative (NEGATIVE); URINE NITRATE Negative (NEGATIVE); URINE PROTEIN(semi-quant) Negative (NEGATIVE); URINE RBC 0-2 /hpf; URINE UROBILINOGEN Negative (NEGATIVE)
[2020-07-09 13:54] VITALS: BP 117/78; PULSE 72
== END 2020-07-09 14:15 | disposition home or self-care (01) ==
LOC: COL.ER 10:56
PROVIDERS: Family Medicine
DX: G40.909 Epilepsy, unspecified, not intractable, without status epilepticus (principal); Z79.899 Other long term (current) drug therapy
CPT/HCPCS: J1790; J2405

== ENCOUNTER 2020-08-19 11:25 | Emergency (ER) | payer OTHER ==
[~2020-08-19] VITALS: Ht 162.6 cm; Wt 52.7 kg
[2020-08-19 11:26] VITALS: TEMP 98.1
[2020-08-19 12:33] LABS: ALANINE AMINOTRANSFERASE 23 U/L (4-34); ALBUMIN 4.9 gm/dL (3.5-5.0); ALKALINE PHOSPHATASE 50 U/L (50-136); ANION GAP 14 mmol/L (7-16); AST,SGOT 28 U/L (15-37); BILIRUBIN,TOTAL 0.5 mg/dL (0.0-1.0); BLOOD UREA NITROGEN 14 mg/dL (7-17); CALCIUM 9.3 mg/dL (8.4-10.2); CARBON DIOXIDE 27 mmol/L (22-30); CHLORIDE 99 mmol/L (98-107); CREATININE, serum 1.04 (0.52-1.25); GLUCOSE 107 mg/dL (74-106); POTASSIUM 3.3 mmol/L (3.4-5.0); SODIUM 140 mmol/L (137-145); TOTAL PROTEIN 8.3 gm/dL (6.4-8.2)
[2020-08-19 12:39] LABS: BASO % 0.5 % (0.0-2.0); EOS % 0.5 % (0-4.0); GRAN # 5.2 (1.4-6.5); HEMATOCRIT 38.2 % (37.0-47.0); HEMOGLOBIN 12.8 g/dl (12.5-16.0); LYMPH # 2.2 (1.2-3.4); LYMPH % 26.5 % (20.0-51.0); MEAN CELL VOLUME 85 fl (80.0-100.0); MEAN CORPUSCULAR HEMOGLOBIN 28 pg (27.0-31.0); MEAN CORPUSCULAR HGB CONC 34 g/dl (33.0-37.0); MEAN PLATELET VOLUME 9.8 fl (7.4-10.4); MONO # 0.8 (0.1-0.6); MONO % 9.1 % (1.7-9.3); PLATELET COUNT 231 K/mm3 (130-400); RED BLOOD COUNT 4.52 M/mm3 (4.10-5.30); REDCELL DISTRIBUTION WIDTH-CV 12.3 % (11.5-14.5)
[2020-08-19 13:10] LABS: TROPONIN-I < 0.012 ng/mL (0.000-0.035)
[2020-08-19 16:15] VITALS: BP 111/70; PULSE 92
== END 2020-08-19 16:15 | disposition home or self-care (01) ==
LOC: COL.ER 11:25
PROVIDERS: Nurse Practitioner
DX: R07.9 Chest pain, unspecified (principal); R56.9 Unspecified convulsions; F32.9 Major depressive disorder, single episode, unspecified; F41.9 Anxiety disorder, unspecified; Z88.4 Allergy status to anesthetic agent
CPT/HCPCS: J1630; J2060; J2405; J3010; J7030

== ENCOUNTER 2020-09-14 23:33 | Emergency (ER) | payer OTHER ==
[~2020-09-14] VITALS: Ht 172.7 cm; Wt 63.6 kg
[2020-09-14 23:47] VITALS: TEMP 98
[2020-09-15 00:11] LABS: BASO % 0.4 % (0.0-2.0); EOS # 0.1 (0.0-0.7); GRAN # 3.9 (1.4-6.5); GRAN % 48.3 % (42.2-75.2); HEMOGLOBIN 11.9 g/dl (12.5-16.0); LYMPH # 3.6 (1.2-3.4); LYMPH % 43.8 % (20.0-51.0); MEAN CELL VOLUME 85 fl (80.0-100.0); MEAN CORPUSCULAR HEMOGLOBIN 27 pg (27.0-31.0); MEAN CORPUSCULAR HGB CONC 32 g/dl (33.0-37.0); MEAN PLATELET VOLUME 9.9 fl (7.4-10.4); MONO # 0.5 (0.1-0.6); MONO % 6.3 % (1.7-9.3); PLATELET COUNT 203 K/mm3 (130-400); RED BLOOD COUNT 4.34 M/mm3 (4.10-5.30); REDCELL DISTRIBUTION WIDTH-CV 12.7 % (11.5-14.5)
[2020-09-15 00:19] LABS: HEMATOCRIT 36.8 % (37.0-47.0)
[2020-09-15 00:31] LABS: ALBUMIN 4.7 gm/dL (3.5-5.0); BILIRUBIN,TOTAL 0.4 mg/dL (0.0-1.0); POTASSIUM 3.3 mmol/L (3.4-5.0); TOTAL PROTEIN 7.8 gm/dL (6.4-8.2)
[2020-09-15 00:45] LABS: PROLACTIN 91.9 ng/mL (3.0-18.6)
[2020-09-15 00:57] VITALS: BP 122/80; PULSE 95
== END 2020-09-15 01:07 | disposition home or self-care (01) ==
LOC: COL.ER 23:33
PROVIDERS: Emergency Medicine
DX: R56.9 Unspecified convulsions (principal); F32.9 Major depressive disorder, single episode, unspecified; Z88.4 Allergy status to anesthetic agent
CPT/HCPCS: J1953; J2060; J7030

== ENCOUNTER 2020-10-13 12:31 | Emergency (ER) | payer OTHER ==
[~2020-10-13] VITALS: Ht 162.6 cm; Wt 52.3 kg
[2020-10-13 13:18] LABS: ALBUMIN 4.4 gm/dL (3.5-5.0); BILIRUBIN,TOTAL 0.3 mg/dL (0.0-1.0); CALCIUM 9.4 mg/dL (8.4-10.2); CREATININE, serum 1.09 (0.52-1.25); TOTAL PROTEIN 7.7 gm/dL (6.4-8.2)
[2020-10-13 14:03] VITALS: BP 110/45; PULSE 74; TEMP 97.6
== END 2020-10-13 14:07 | disposition home or self-care (01) ==
LOC: COL.ER 12:31
PROVIDERS: Emergency Medicine
DX: R55 Syncope and collapse (principal); G40.909 Epilepsy, unspecified, not intractable, without status epilepticus; F32.9 Major depressive disorder, single episode, unspecified; F41.9 Anxiety disorder, unspecified; Z88.6 Allergy status to analgesic agent

== ENCOUNTER 2020-11-09 04:18 | Emergency (ER) | payer OTHER ==
[~2020-11-09] VITALS: Ht 170.2 cm; Wt 52.0 kg
[2020-11-09 04:18] VITALS: TEMP 98
[2020-11-09 04:46] LABS: BASO % 0.5 % (0.0-2.0); EOS # 0.1 (0.0-0.7); EOS % 1.5 % (0-4.0); GRAN # 2.8 (1.4-6.5); GRAN % 45.8 % (42.2-75.2); HEMATOCRIT 32.9 % (37.0-47.0); HEMOGLOBIN 10.5 g/dl (12.5-16.0); LYMPH # 2.6 (1.2-3.4); LYMPH % 43.3 % (20.0-51.0); MEAN CELL VOLUME 86 fl (80.0-100.0); MEAN CORPUSCULAR HEMOGLOBIN 27 pg (27.0-31.0); MEAN CORPUSCULAR HGB CONC 32 g/dl (33.0-37.0); MEAN PLATELET VOLUME 9.5 fl (7.4-10.4); MONO # 0.5 (0.1-0.6); MONO % 8.7 % (1.7-9.3); PLATELET COUNT 149 K/mm3 (130-400); RED BLOOD COUNT 3.84 M/mm3 (4.10-5.30); REDCELL DISTRIBUTION WIDTH-CV 13.5 % (11.5-14.5)
[2020-11-09 04:49] LABS: PROTHROMBIN TIME 11.1 SECONDS (9.7-12.8)
[2020-11-09 04:51] LABS: PARTIAL THROMBOPLASTIN TIME 32.8 SECONDS (26.0-37.0)
[2020-11-09 05:19] LABS: BILIRUBIN,TOTAL 0.3 mg/dL (0.0-1.0); CALCIUM 8.5 mg/dL (8.4-10.2); CREATININE, serum 0.87 (0.52-1.25); POTASSIUM 3.3 mmol/L (3.4-5.0); TOTAL PROTEIN 6.8 gm/dL (6.4-8.2)
[2020-11-09 05:34] LABS: COLLECTION METHOD CATHETER
[2020-11-09 05:42] LABS: PH 7 (5-8); SQUAMOUS EPITHELIAL 0-2 /hpf; URINE APPEARANCE Clear; URINE BACTERIA None Seen /hpf; URINE BILIRUBIN Negative (NEGATIVE); URINE BLOOD Negative (NEGATIVE); URINE COLOR Straw; URINE GLUCOSE 2+ (NEGATIVE); URINE KETONE Negative (NEGATIVE); URINE LEUKOCYTE ESTERASE Negative (NEGATIVE); URINE NITRATE Negative (NEGATIVE); URINE PROTEIN(semi-quant) Negative (NEGATIVE); URINE RBC 0-2 /hpf; URINE UROBILINOGEN Negative (NEGATIVE); URINE WBC 0-2 /hpf
[2020-11-09 06:06] LABS: TRICYCLIC ANTIDEPRESS URINE NEGATIVE
[2020-11-09 06:07] LABS: ACETAMINOPHEN < 10 ug/mL (10-30); SALICYLATE < 1.0 mg/dL
[2020-11-09 09:00] VITALS: BP 111/83; PULSE 78
== END 2020-11-09 09:00 | disposition home or self-care (01) ==
LOC: COL.ER 04:18
PROVIDERS: Emergency Medicine
DX: G40.909 Epilepsy, unspecified, not intractable, without status epilepticus (principal); Z88.6 Allergy status to analgesic agent
CPT/HCPCS: J1953; J2060; J2704; J3480; J7030

== ENCOUNTER 2020-11-12 01:40 | Emergency (ER) | payer OTHER ==
[~2020-11-12] VITALS: Ht 162.6 cm; Wt 47.7 kg
[2020-11-12 01:47] VITALS: TEMP 97.3
[2020-11-12 03:44] LABS: BASO % 0.3 % (0.0-2.0); EOS % 0.5 % (0-4.0); GRAN # 3.9 (1.4-6.5); GRAN % 63.6 % (42.2-75.2); HEMOGLOBIN 11.7 g/dl (12.5-16.0); LYMPH # 1.7 (1.2-3.4); LYMPH % 27.9 % (20.0-51.0); MEAN CELL VOLUME 85 fl (80.0-100.0); MEAN CORPUSCULAR HEMOGLOBIN 28 pg (27.0-31.0); MEAN CORPUSCULAR HGB CONC 33 g/dl (33.0-37.0); MEAN PLATELET VOLUME 9.7 fl (7.4-10.4); MONO # 0.5 (0.1-0.6); MONO % 7.5 % (1.7-9.3); PLATELET COUNT 161 K/mm3 (130-400); REDCELL DISTRIBUTION WIDTH-CV 13.2 % (11.5-14.5)
[2020-11-12 03:45] LABS: HEMATOCRIT 35.5 % (37.0-47.0)
[2020-11-12 03:59] LABS: ALANINE AMINOTRANSFERASE 18 U/L (4-34); ALBUMIN 4.4 gm/dL (3.5-5.0); ALKALINE PHOSPHATASE 42 U/L (50-136); ANION GAP 9 mmol/L (7-16); AST,SGOT 24 U/L (15-37); BILIRUBIN,TOTAL 0.3 mg/dL (0.0-1.0); BLOOD UREA NITROGEN 17 mg/dL (7-17); C-REACTIVE PROTEIN < 0.5 mg/dL (0.0-0.9); CALCIUM 9.5 mg/dL (8.4-10.2); CARBON DIOXIDE 32 mmol/L (22-30); CHLORIDE 101 mmol/L (98-107); CREATININE, serum 0.92 (0.52-1.25); GLUCOSE 98 mg/dL (74-106); MAGNESIUM 2.1 mg/dL (1.6-2.3); POTASSIUM 3.9 mmol/L (3.4-5.0); SODIUM 143 mmol/L (137-145); TOTAL PROTEIN 7.7 gm/dL (6.4-8.2)
[2020-11-12 04:25] LABS: COLLECTION METHOD CLEAN CATCH
[2020-11-12 04:31] LABS: PH 7 (5-8); SQUAMOUS EPITHELIAL 0-2 /hpf; URINE APPEARANCE Clear; URINE BACTERIA None Seen /hpf; URINE BILIRUBIN Negative (NEGATIVE); URINE BLOOD Negative (NEGATIVE); URINE COLOR Straw; URINE GLUCOSE Negative (NEGATIVE); URINE KETONE Negative (NEGATIVE); URINE LEUKOCYTE ESTERASE Negative (NEGATIVE); URINE NITRATE Negative (NEGATIVE); URINE PROTEIN(semi-quant) Negative (NEGATIVE); URINE RBC 0-2 /hpf; URINE UROBILINOGEN Negative (NEGATIVE)
[2020-11-12 04:48] VITALS: BP 119/83; PULSE 89
== END 2020-11-12 04:48 | disposition home or self-care (01) ==
LOC: COL.ER 01:40
PROVIDERS: Emergency Medicine
DX: G40.909 Epilepsy, unspecified, not intractable, without status epilepticus (principal); F41.9 Anxiety disorder, unspecified; F32.9 Major depressive disorder, single episode, unspecified; Z32.02 Encounter for pregnancy test, result negative; Z88.4 Allergy status to anesthetic agent; Z88.6 Allergy status to analgesic agent

== ENCOUNTER 2020-11-29 16:41 | Emergency (ER) | payer OTHER ==
[~2020-11-29] VITALS: Ht 162.6 cm; Wt 50.0 kg
[2020-11-29 16:52] VITALS: BP 162/100; TEMP 97.5
[2020-11-29 17:32] VITALS: PULSE 60
== END 2020-11-29 17:38 | disposition home or self-care (01) ==
LOC: COL.ER 16:41
DX: S60.221A Contusion of right hand, initial encounter (principal); G40.909 Epilepsy, unspecified, not intractable, without status epilepticus; F41.9 Anxiety disorder, unspecified; F32.9 Major depressive disorder, single episode, unspecified; K21.9 Gastro-esophageal reflux disease without esophagitis; F42.9 Obsessive-compulsive disorder, unspecified; Z88.4 Allergy status to anesthetic agent; Z88.6 Allergy status to analgesic agent; W23.1XXA Caught, crushed, jammed, or pinched between stationary objects, initial encounter; Y93.E2 Activity, laundry; Y92.009 Unspecified place in unspecified non-institutional (private) residence as the place of occurrence of the external cause

== ENCOUNTER 2020-12-01 07:12 | Emergency (ER) | payer OTHER ==
[~2020-12-01] VITALS: Ht 162.6 cm; Wt 50.0 kg
[2020-12-01 07:23] VITALS: BP 157/94; TEMP 97.6
[2020-12-01] MEDS ORDERED: NORCO 325 MG-51 TAB PO (07:47)
[2020-12-01 08:02] VITALS: PULSE 110
== END 2020-12-01 08:02 | disposition home or self-care (01) ==
LOC: COL.ER 07:12
DX: S60.221D Contusion of right hand, subsequent encounter (principal); G43.909 Migraine, unspecified, not intractable, without status migrainosus; Z88.6 Allergy status to analgesic agent; W22.01XD Walked into wall, subsequent encounter

== ENCOUNTER 2020-12-28 14:49 | Emergency (ER) | payer OTHER ==
[~2020-12-28] VITALS: Ht 162.6 cm; Wt 41.4 kg
[2020-12-28 15:19] LABS: BASO % 0.4 % (0.0-2.0); EOS # 0.1 (0.0-0.7); GRAN # 3.3 (1.4-6.5); GRAN % 46.1 % (42.2-75.2); HEMATOCRIT 41.7 % (37.0-47.0); HEMOGLOBIN 13.4 g/dl (12.5-16.0); LYMPH # 3.1 (1.2-3.4); LYMPH % 43.4 % (20.0-51.0); MEAN CELL VOLUME 87 fl (80.0-100.0); MEAN CORPUSCULAR HEMOGLOBIN 28 pg (27.0-31.0); MEAN CORPUSCULAR HGB CONC 32 g/dl (33.0-37.0); MEAN PLATELET VOLUME 9.9 fl (7.4-10.4); MONO # 0.6 (0.1-0.6); PLATELET COUNT 218 K/mm3 (130-400); RED BLOOD COUNT 4.78 M/mm3 (4.10-5.30); REDCELL DISTRIBUTION WIDTH-CV 13.2 % (11.5-14.5)
[2020-12-28 15:28] LABS: ALANINE AMINOTRANSFERASE 27 U/L (4-34); ALBUMIN 4.8 gm/dL (3.5-5.0); ALKALINE PHOSPHATASE 55 U/L (50-136); ANION GAP 10 mmol/L (7-16); AST,SGOT 30 U/L (15-37); BILIRUBIN,TOTAL 0.7 mg/dL (0.0-1.0); BLOOD UREA NITROGEN 19 mg/dL (7-17); CALCIUM 9.8 mg/dL (8.4-10.2); CARBON DIOXIDE 30 mmol/L (22-30); CHLORIDE 99 mmol/L (98-107); CREATININE, serum 0.87 (0.52-1.25); GLUCOSE 94 mg/dL (74-106); POTASSIUM 3.5 mmol/L (3.4-5.0); SODIUM 139 mmol/L (137-145); TOTAL PROTEIN 8.2 gm/dL (6.4-8.2)
[2020-12-28 15:41] LABS: TROPONIN-I < 0.012 ng/mL (0.000-0.035)
[2020-12-28 16:17] LABS: COLLECTION METHOD CLEAN CATCH
[2020-12-28 16:33] LABS: URINE APPEARANCE Clear; URINE COLOR Yellow
[2020-12-28 16:34] LABS: PH 8 (5-8); URINE BILIRUBIN Negative (NEGATIVE); URINE BLOOD Negative (NEGATIVE); URINE GLUCOSE Negative (NEGATIVE); URINE KETONE Negative (NEGATIVE); URINE LEUKOCYTE ESTERASE Negative (NEGATIVE); URINE NITRATE Negative (NEGATIVE); URINE PROTEIN(semi-quant) Negative (NEGATIVE); URINE UROBILINOGEN Negative (NEGATIVE)
[2020-12-28 16:35] LABS: MUCOUS Present /lpf; SQUAMOUS EPITHELIAL 0-2 /hpf; URINE BACTERIA None Seen /hpf; URINE RBC 0-2 /hpf
[2020-12-28 17:34] VITALS: TEMP 98.1
[2020-12-28 22:58] VITALS: BP 118/74; PULSE 90
== END 2020-12-28 22:58 | disposition home or self-care (01) ==
LOC: COL.ER 14:49
PROVIDERS: Physician Assistant
DX: G40.89 Other seizures (principal); F41.9 Anxiety disorder, unspecified; F32.9 Major depressive disorder, single episode, unspecified; Z88.6 Allergy status to analgesic agent; Z88.4 Allergy status to anesthetic agent
CPT/HCPCS: J2060; J7030

== ENCOUNTER 2021-01-02 10:25 | Emergency (ER) | payer OTHER ==
[~2021-01-02] VITALS: Ht 162.6 cm; Wt 50.0 kg
[2021-01-02 10:37] VITALS: TEMP 98.2
[2021-01-02 10:57] LABS: COLLECTION METHOD CLEAN CATCH
[2021-01-02 11:03] LABS: MUCOUS Present /lpf; PH 7 (5-8); SQUAMOUS EPITHELIAL 0-2 /hpf; URINE APPEARANCE Clear; URINE BACTERIA Rare /hpf; URINE BILIRUBIN Negative (NEGATIVE); URINE BLOOD Negative (NEGATIVE); URINE COLOR Colorless; URINE GLUCOSE Negative (NEGATIVE); URINE KETONE Negative (NEGATIVE); URINE LEUKOCYTE ESTERASE Negative (NEGATIVE); URINE NITRATE Negative (NEGATIVE); URINE PROTEIN(semi-quant) Negative (NEGATIVE); URINE RBC 0-2 /hpf; URINE UROBILINOGEN Negative (NEGATIVE); URINE WBC 0-2 /hpf
[2021-01-02 11:06] LABS: BASO % 0.6 % (0.0-2.0); EOS # 0.1 (0.0-0.7); EOS % 0.9 % (0-4.0); GRAN # 3.7 (1.4-6.5); GRAN % 54.3 % (42.2-75.2); HEMOGLOBIN 14.3 g/dl (12.5-16.0); LYMPH # 2.3 (1.2-3.4); MEAN CELL VOLUME 87 fl (80.0-100.0); MEAN CORPUSCULAR HEMOGLOBIN 28 pg (27.0-31.0); MEAN CORPUSCULAR HGB CONC 33 g/dl (33.0-37.0); MEAN PLATELET VOLUME 9.9 fl (7.4-10.4); MONO # 0.7 (0.1-0.6); MONO % 9.9 % (1.7-9.3); PLATELET COUNT 226 K/mm3 (130-400); RED BLOOD COUNT 5.07 M/mm3 (4.10-5.30); REDCELL DISTRIBUTION WIDTH-CV 13.4 % (11.5-14.5)
[2021-01-02 11:16] LABS: TRICYCLIC ANTIDEPRESS URINE NEGATIVE
[2021-01-02 11:22] LABS: ACETAMINOPHEN < 10 ug/mL (10-30); ALCOHOL(ethanol),MEDICAL < 10 mg/dL; SALICYLATE < 1.0 mg/dL
[2021-01-02 11:55] LABS: ALBUMIN 4.9 gm/dL (3.5-5.0); BILIRUBIN,TOTAL 0.4 mg/dL (0.0-1.0); CALCIUM 9.5 mg/dL (8.4-10.2); CREATININE, serum 1.02 (0.52-1.25); POTASSIUM 3.5 mmol/L (3.4-5.0); TOTAL PROTEIN 8.2 gm/dL (6.4-8.2)
[2021-01-02 13:43] LABS: CALCIUM 9.5 mg/dL (8.4-10.2); CREATININE, serum 1.04 (0.52-1.25)
[2021-01-02 13:54] LABS: TRICYCLIC ANTIDEPRESS URINE NEGATIVE
[2021-01-02 14:30] LABS: MAGNESIUM 2.2 mg/dL (1.6-2.3)
[2021-01-02 21:36] VITALS: BP 127/84; PULSE 88
== END 2021-01-02 22:33 ==
LOC: COL.ER 10:25
PROVIDERS: Emergency Medicine; Nurse Practitioner Primary Care
DX: T45.0X2A Poisoning by antiallergic and antiemetic drugs, intentional self-harm, initial encounter (principal); T43.4X2A Poisoning by butyrophenone and thiothixene neuroleptics, intentional self-harm, initial encounter; T42.4X2A Poisoning by benzodiazepines, intentional self-harm, initial encounter; F32.9 Major depressive disorder, single episode, unspecified; G40.909 Epilepsy, unspecified, not intractable, without status epilepticus; Z88.6 Allergy status to analgesic agent; Z20.822 Contact with and (suspected) exposure to COVID-19

== ENCOUNTER 2021-01-20 16:00 | Emergency (ER) | payer OTHER ==
[~2021-01-20] VITALS: Ht 162.6 cm; Wt 46.8 kg
[2021-01-20 16:10] VITALS: TEMP 98.2
[2021-01-20 17:14] LABS: COLLECTION METHOD CLEAN CATCH
[2021-01-20 17:28] LABS: PH 9 (5-8); SQUAMOUS EPITHELIAL 20-50 /hpf; URINE APPEARANCE Cloudy; URINE BACTERIA None Seen /hpf; URINE BILIRUBIN Negative (NEGATIVE); URINE BLOOD Negative (NEGATIVE); URINE COLOR Yellow; URINE GLUCOSE Negative (NEGATIVE); URINE KETONE Negative (NEGATIVE); URINE LEUKOCYTE ESTERASE 1+ (NEGATIVE); URINE NITRATE Negative (NEGATIVE); URINE PROTEIN(semi-quant) 2+ (NEGATIVE); URINE RBC 0-2 /hpf; URINE UROBILINOGEN Negative (NEGATIVE)
[2021-01-20 17:38] LABS: TRICYCLIC ANTIDEPRESS URINE NEGATIVE
[2021-01-20 17:58] LABS: BASO % 0.8 % (0.0-2.0); GRAN # 1.9 (1.4-6.5); GRAN % 46.8 % (42.2-75.2); HEMATOCRIT 39.7 % (37.0-47.0); HEMOGLOBIN 13.3 g/dl (12.5-16.0); LYMPH # 1.6 (1.2-3.4); LYMPH % 40.3 % (20.0-51.0); MEAN CELL VOLUME 85 fl (80.0-100.0); MEAN CORPUSCULAR HEMOGLOBIN 28 pg (27.0-31.0); MEAN CORPUSCULAR HGB CONC 34 g/dl (33.0-37.0); MONO # 0.4 (0.1-0.6); MONO % 10.8 % (1.7-9.3); PLATELET COUNT 134 K/mm3 (130-400); RED BLOOD COUNT 4.69 M/mm3 (4.10-5.30); REDCELL DISTRIBUTION WIDTH-CV 13.6 % (11.5-14.5)
[2021-01-20 18:04] LABS: INR 0.9 (0.8-3.0); PROTHROMBIN TIME 10.4 SECONDS (9.7-12.8)
[2021-01-20 18:07] LABS: ALANINE AMINOTRANSFERASE 47 U/L (4-34); ALBUMIN 4.5 gm/dL (3.5-5.0); ALKALINE PHOSPHATASE 45 U/L (50-136); ANION GAP 8 mmol/L (7-16); AST,SGOT 40 U/L (15-37); BILIRUBIN,TOTAL 0.3 mg/dL (0.0-1.0); BLOOD UREA NITROGEN 20 mg/dL (7-17); CALCIUM 9.5 mg/dL (8.4-10.2); CARBON DIOXIDE 36 mmol/L (22-30); CHLORIDE 95 mmol/L (98-107); CREATININE, serum 1.13 (0.52-1.25); GLUCOSE 85 mg/dL (74-106); LIPASE 70 U/L (23-300); POTASSIUM 3.9 mmol/L (3.4-5.0); SODIUM 139 mmol/L (137-145); TOTAL PROTEIN 8.2 gm/dL (6.4-8.2)
[2021-01-20 18:14] LABS: ACETAMINOPHEN < 10 ug/mL (10-30); ALCOHOL(ethanol),MEDICAL < 10 mg/dL; SALICYLATE < 1.0 mg/dL
[2021-01-20 22:15] VITALS: BP 121/79; PULSE 58
[2021-01-20] MEDS ORDERED: MOTRIN 400400 MG/TAB PO (22:20)
== END 2021-01-20 22:20 | disposition home or self-care (01) ==
LOC: COL.ER 16:00
PROVIDERS: Emergency Medicine
DX: F50.02 Anorexia nervosa, binge eating/purging type (principal); F32.9 Major depressive disorder, single episode, unspecified; G40.909 Epilepsy, unspecified, not intractable, without status epilepticus; Z88.6 Allergy status to analgesic agent
CPT/HCPCS: J2250; J3010

== ENCOUNTER 2021-01-22 10:45 | Inpatient (IN) | payer OTHER ==
[~2021-01-22] VITALS: Ht 162.6 cm; Wt 50.0 kg
[~2021-01-22 10:45] MED LIST changes: +MOTRIN 400400 MG/TAB PO
[2021-01-22 12:52] LABS: BASO % 0.8 % (0.0-2.0); GRAN # 1.9 (1.4-6.5); GRAN % 48.3 % (42.2-75.2); HEMATOCRIT 38.5 % (37.0-47.0); HEMOGLOBIN 12.7 g/dl (12.5-16.0); LYMPH # 1.5 (1.2-3.4); LYMPH % 38.4 % (20.0-51.0); MEAN CELL VOLUME 86 fl (80.0-100.0); MEAN CORPUSCULAR HEMOGLOBIN 28 pg (27.0-31.0); MEAN CORPUSCULAR HGB CONC 33 g/dl (33.0-37.0); MEAN PLATELET VOLUME 9.7 fl (7.4-10.4); MONO # 0.4 (0.1-0.6); MONO % 11.5 % (1.7-9.3); PLATELET COUNT 168 K/mm3 (130-400); RED BLOOD COUNT 4.48 M/mm3 (4.10-5.30); REDCELL DISTRIBUTION WIDTH-CV 13.2 % (11.5-14.5)
[2021-01-22 13:04] LABS: ALANINE AMINOTRANSFERASE 30 U/L (4-34); ALBUMIN 4.2 gm/dL (3.5-5.0); ALKALINE PHOSPHATASE 44 U/L (50-136); ANION GAP 10 mmol/L (7-16); AST,SGOT 27 U/L (15-37); BILIRUBIN,TOTAL 0.7 mg/dL (0.0-1.0); BLOOD UREA NITROGEN 23 mg/dL (7-17); CARBON DIOXIDE 28 mmol/L (22-30); CHLORIDE 99 mmol/L (98-107); CREATININE, serum 0.95 (0.52-1.25); GLUCOSE 75 mg/dL (74-106); POTASSIUM 3.9 mmol/L (3.4-5.0); SODIUM 137 mmol/L (137-145); TOTAL PROTEIN 7.4 gm/dL (6.4-8.2)
[2021-01-22 13:06] LABS: C-REACTIVE PROTEIN < 0.5 mg/dL (0.0-0.9)
[2021-01-22 13:18] LABS: PROLACTIN 27.6 ng/mL (3.0-18.6)
[2021-01-22 14:09] VITALS: BP 102/62; PULSE 58; TEMP 97.8
[2021-01-22] MEDS ORDERED: PRILOSEC 20MG20 MG PO (15:02)
[2021-01-22] MEDS ORDERED: LEXAPRO20 MG PO (15:03)
--- NOTE | 2021-01-22 16:03 | NUR ---
Dr Vázquez notified of consult.
[2021-01-22 16:12] LABS: MAGNESIUM 2.2 mg/dL (1.6-2.3); PHOSPHOROUS 3.6 mg/dL (2.5-4.5)
--- NOTE | 2021-01-22 16:14 | NUR ---
Patient occassionally opens eye with verbal commands, turns away from person questioning her. Allows physical assessment, but refuses conversation. Dr Vázquez notified of consult.
[2021-01-22 16:43] LABS: TSH w REFLEX 1.27 uIU/mL (0.465-4.680)
[2021-01-22] MEDS ORDERED: CELEBREX 200MG200 MG PO (16:57)
--- NOTE | 2021-01-22 17:27 | NUR ---
Dr Garcia here to see patient.
--- NOTE | 2021-01-22 18:21 | NUR ---
Patient continues to refuse to converse with staff, however, did converse with Dr Garcia, noted with nurse in room during conversation. Dr Vázquez here at this time to visit patient, patient refuses to open eyes or converse.
[2021-01-22 19:15] LABS: AMYLASE 95 U/L (30-110); LIPASE 42 U/L (23-300)
[2021-01-22 19:41] VITALS: BP 110/63; PULSE 69; TEMP 97.5
--- NOTE | 2021-01-22 21:00 | NUR ---
PT IN BED. SIGNS CONSENT FOR EGD. REFUSES HS MEDS SHE BELIEVES SHE WOULDN'T BE ABLE TO KEEP THEM DOWN. HAS RT IJ WITH IVF INFUSING AT 75CC/HR. HAS HAD NO STOOL SO FAR THIS SHIFT. PT HAS FLAT AFFECT AND SOFT SPEAKING VOICE, POOR EYE CONTACT.
[2021-01-22 23:56] VITALS: BP 110/67; PULSE 62; TEMP 98
[2021-01-23] VITALS (13 sets, daily range): BP systolic 101–126; BP diastolic 58–82; PULSE 54–64; TEMP 97.6–98.6
--- NOTE | 2021-01-23 | NUR ---
NPO FOR EGD TODAY. PT UP INDEPENDENTLY IN ROOM. IVF INFUSING WITHOUT PROBLEM.
[2021-01-23 06:19] LABS: HEMOGLOBIN 10.8 g/dl (12.5-16.0); MEAN CELL VOLUME 87 fl (80.0-100.0); MEAN CORPUSCULAR HEMOGLOBIN 28 pg (27.0-31.0); MEAN CORPUSCULAR HGB CONC 32 g/dl (33.0-37.0); MEAN PLATELET VOLUME 10.4 fl (7.4-10.4); PLATELET COUNT 158 K/mm3 (130-400); RED BLOOD COUNT 3.86 M/mm3 (4.10-5.30); REDCELL DISTRIBUTION WIDTH-CV 13.3 % (11.5-14.5)
[2021-01-23 06:28] LABS: HEMATOCRIT 33.6 % (37.0-47.0)
[2021-01-23 06:35] LABS: ALBUMIN 3.2 gm/dL (3.5-5.0); BILIRUBIN,TOTAL 0.3 mg/dL (0.0-1.0); CREATININE, serum 0.89 (0.52-1.25); PHOSPHOROUS 2.8 mg/dL (2.5-4.5); TOTAL PROTEIN 5.6 gm/dL (6.4-8.2)
--- NOTE | 2021-01-23 07:41 | NUR ---
Patient lying in bed on left side with eyes closed. Opens eyes momentarily when name called out but closes eyes again. Shakes head no whan asked if having pain. Patient denies further needs or concerns at this time.
--- NOTE | 2021-01-23 10:17 | NUR ---
Patient to endoscopy via bed at this time.
--- NOTE | 2021-01-23 11:00 | NUR ---
Patient back to room from endoscopy via bed. Patient will open eyes when spoken to but closes eyes. Able to move all extremities. No signs or symptoms of discomfort noted at this time. Provide water. Denies further needs.
--- NOTE | 2021-01-23 11:24 | NUR ---
Patient lying in bed with eyes closed. Patient will not open eyes, answer questions, or follow any commands. Accu check done and patient did not move for this either. Contact talia Blandon RN, and RIK Wiggins, to assist with patient. RIK Wiggins, in room and assesses patient. Patient continues to not follow commands, open eyes, or answer any questions. Spouse in room with the patient at this time and updated. He attempts to get patient to open eyes or say something at this time.
--- NOTE | 2021-01-23 11:32 | NUR ---
Orders received for ammonia from RIK Wiggins. Vial placed under patient nose as prescribed. Patient begins to open eyes and move around. Spouse says that before we came in room she opened eyes and would answer him a couple times but once we came in room she would not open eyes or answer questions. Patient more awake at this time. Spouse remains in room with the patient.
--- NOTE | 2021-01-23 11:45 | NUR ---
Lying in bed with eyes open. Patient answering questions at this time. Patient woudl like a 60mL syringe as she is able to drink fluids better using the syringe. Provide at this time. Patient and spouse updated that the hospital team should be in to see her. Patient denies additional needs at this time.
--- NOTE | 2021-01-23 12:06 | NUR ---
Plan is unknown at this time, more information needed. SW met with patient and in room. Patient was responsive after told her to do so. Patient's spouse is Aamir . PCP is reported as Luisana Cortés. Patient is reported to have an SI attempt three weeks ago and was sent to [facility] in [place]. Patient has a [place] financial service representative but is switiching to [address]. 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 Patient goes from responsive to non responsive and not wanting to communicate. Will continue to follow. [facility].
--- NOTE | 2021-01-23 12:07 | NUR ---
Lying in bed on left side with eyes closed. Will not open eyes or verbally answer questions but will shake head yes or no to questions. Has not tried to drink any water at this time. Offer jello, juice, or popsicles and patient declines. Shakes head no to any further needs. Spouse has left at this time but left his cell number on patient board in room.
--- NOTE | 2021-01-23 13:38 | NUR ---
Spoke with the patient regarding order from the provider to do a [facility] screen for inpatient psych treatment for eating disorders. Patient does agree to use tablet to do this. ER explains that we have to contact [facility] first to set up Zoom meeting for this to occur. Contact [facility], , and they need patient face sheet, progress note, and labs faxed to them at [phone]. After they review they will contact this nurse to set up meeting. Records faxed at this time.
--- NOTE | 2021-01-23 13:54 | NUR ---
Patient informed that I am awaiting [facility] to call back with the Zoom meeting information and once we receive that we will be in with the tablet for her to talk with them further. Patient nods her head in agreeance.
--- NOTE | 2021-01-23 14:18 | NUR ---
Receive call back from [facility] with Zoom ID [id number] and passcode [id number]. Will obtain tablet from ER and assist in setting up for patient to have meeting.
--- NOTE | 2021-01-23 14:33 | NUR ---
Attempt to set up Zoom meeting. Passwork not going through. Contact [facility] and they have been having some issues so they will restart their system and call this nurse back. They call back and provide new ID and passcode that works at this time. Provide iPad to the patient to do Zoom meeting. Patient was also having nausea, administered Zofran as prescribed. Patient denies additional needs at this time.
--- NOTE | 2021-01-23 15:08 | NUR ---
Patient has completed call with [facility]. Repositions self in bed to left side. Patient denies additional needs at this time.
--- NOTE | 2021-01-23 15:35 | NUR ---
ER calls and they have a copy of the patient's Safety Plan that [facility] faxed over. Obtained safety plan and placed in patient chart.
--- NOTE | 2021-01-23 17:27 | NUR ---
Lying in bed with eyes closed. Opens eyes when name called out. Still has some nausea. Has not attempted to eat or drink anything because she does not want to get sick. Encourage patient to try to eat/drink soemthing. Offer to order patient dinner from the kitchen and patient declines at this time but will let me know if she changes her mind. Patient denies further needs or concerns at this time.
--- NOTE | 2021-01-23 20:00 | NUR ---
PT IN BED, HAS EYES CLOSED. HAS NOT TAKEN ANY ORAL MEDS OR LIQUIDS. ABD FLAT. BS HYPOACTIVE. IVF PER RT IJ INFUSING WITHOUT PROBLEM. REPORTS PERSISTENT NAUSEA WITHOUT EMESIS. NO STOOLS. VOIDING YELLOW URINE AND IS UP IN ROOM INDEPENDENTLY.
[2021-01-24 04:00] VITALS: BP 114/68; PULSE 59; TEMP 98.3
--- NOTE | 2021-01-24 05:00 | NUR ---
LABS OBTAINED FROM RT ALLIE. PT RESTING.
[2021-01-24 06:08] LABS: HEMOGLOBIN 10.8 g/dl (12.5-16.0); MEAN CELL VOLUME 87 fl (80.0-100.0); MEAN CORPUSCULAR HEMOGLOBIN 29 pg (27.0-31.0); MEAN CORPUSCULAR HGB CONC 33 g/dl (33.0-37.0); MEAN PLATELET VOLUME 10.4 fl (7.4-10.4); PLATELET COUNT 148 K/mm3 (130-400); RED BLOOD COUNT 3.78 M/mm3 (4.10-5.30); REDCELL DISTRIBUTION WIDTH-CV 13.3 % (11.5-14.5)
[2021-01-24 06:20] LABS: BILIRUBIN,TOTAL 0.2 mg/dL (0.0-1.0); CALCIUM 7.9 mg/dL (8.4-10.2); CREATININE, serum 0.8 (0.52-1.25); MAGNESIUM 1.8 mg/dL (1.6-2.3); PHOSPHOROUS 2.7 mg/dL (2.5-4.5); POTASSIUM 3.4 mmol/L (3.4-5.0); TOTAL PROTEIN 5.5 gm/dL (6.4-8.2)
--- NOTE | 2021-01-24 06:30 | NUR ---
PT AWAKE, LIGHTS ON. TAKING OUT HER PIERCINGS. HAVING DIFFICULTY REMOVING HER TONGUE PIERCING. TALKATIVE WITH STAFF.
--- NOTE | 2021-01-24 07:15 | NUR ---
PATIENT OFF FLOOR TO MRI VIA WC
--- NOTE | 2021-01-24 07:24 | NUR ---
[facility] CALLED AND PLANS TO TAKE PATIENT RIGHT AFTER MRI
--- NOTE | 2021-01-24 07:42 | NUR ---
MRI CALLED AND REPORTED PATIENT WAS HAD A SEIZURE DOWN STAIRS BUT REPORTED SITUATION WAS CONTROLED AND DIDN'T NEED NURSING TO COME DOWN. PATIENT HAS AN EXTENSIVE HX OF SEIZURES AND HAS NOT BEEN TAKING HER ORAL MEDS DUE TO NAUSEA. N[facility] MED PLANNING TO TAKE PATIENT AFTER MRI
--- NOTE | 2021-01-24 08:30 | NUR ---
PATIENT BACK IN ROOM FROM MRI. PATIENT WAS GIVEN ATIVAN IN MRI AND IS NOW VERY DROWSY. NUCLEAR MED WILL WAIT FOR GASTIC STUDY. TELE BACK ON AND IV FLUIDS RESTARTED. PATIENT RESTING IN BED.
--- NOTE | 2021-01-24 08:30 | NUR ---
AGREE WITH STUDENT ASSESSMENT, SEE CHARTED SHIFT ASSESSMENT
--- NOTE | 2021-01-24 08:30 | NUR ---
PATIENT BACK ON THE FLOOR FROM MRI. PATIENT EXPERIENCED SEIZURE ACTIVITY DURING SCAN AND RECIEVED ATIVAN. PRIOR TO SCAN THE PATIENT WAS ALERT AND ORIENTED X3 AND ANSWERING QUESTIONS APPROPRIATELY. HOWEVER, NOW SHE IS RESTING WITH EYES CLOSED AND NOT RESPONDING VERBALLY. WHEN ASKED TO DO SOMETHING, SHE WILL RESPOND PHYSICALLY, VERY SLOWLY. VSS. NO COMPLAINTS OF PAIN OR N/V AT THIS TIME. REFUSES MORNING MEDS BEFORE MRI. HEAD TO TOE ASSESSMENT COMPLETED. LUNG SOUNDS CLEAR IN ALL LOBES. HEART SOUNDS REGULAR AND NORMAL. PULSES ARE READILY PALPABLE BILATERALLY. NO EDEMA OR REDNESS NOTED IN THE LOWER EXTREMITIES. BOWEL SOUNDS ARE AUDIBLE IN ALL FOUR QUADRANTS. PATIENT HOOKED BACK UP TO IV FLUIDS AND SEIZURE PRECAUTIONS ARE IN PLACE. BED RAILS ARE PADDED, BED LEFT IN LOWEST POSITION, AND CALL LIGHT LEFT WITHIN REACH.
[2021-01-24 08:52] VITALS: BP 111/66; PULSE 53; TEMP 98.2
--- NOTE | 2021-01-24 09:20 | NUR ---
[facility] ON THEIR WAY UP TO GET PATIENT. WENT DOWN TO ROOM TO INT IV SITE AND FOUND PATIENT UP IN BATHROOM INDEPENDENTLY. GAIT UNSTEADY. PATIENT NEARLY LOST HER BALANCE. WITH KNOWN SEIZURE ACTIVITY AND DOSE OF ATIVAN IN MRI, PATIENT PLACED ON HIGH FALL RISK PRECAUTIONS AND MOVED CLOSER TO THE DESK INTO ROOM 324.
--- NOTE | 2021-01-24 09:25 | NUR ---
PATIENT NOW OFF FLOOR FOR GASTIC STUDY
--- NOTE | 2021-01-24 11:50 | NUR ---
PATIENT BACK IN ROOM FROM GI STUDY.
[2021-01-24 12:15] VITALS: BP 119/76; PULSE 57; TEMP 98.3
[2021-01-24 15:43] VITALS: BP 119/70; PULSE 60; TEMP 98.4
--- NOTE | 2021-01-24 16:25 | NUR ---
CULLET CRUSHER AND WASHER DISCUSSED INPATIENT PSYCH SCREENING. PATIENT WILL BE SCREENED ONCE SHE IS MEDICALLY CLEARED. NEWS PRODUCTION ASSISTANT HANDELING PSYCH SCREEN/CONSULT.
--- NOTE | 2021-01-24 17:20 | NUR ---
PATIENT'S NOW AT BEDSIDE. PATIENT NOW AWAKE, A&O AND ANSWERED QUESTIONS APPROPRIATELY. DENIES NEEDS. CALL LIGHT IN REACH.
[2021-01-24 19:06] VITALS: BP 116/73; PULSE 54; TEMP 98
--- NOTE | 2021-01-24 22:05 | NUR ---
PT IN BED. TALKATIVE. REFUSES HS ORAL MEDS. WANTS TO START ENSURE VS CLEAR LIQUIDS. REPORTS NO STOOLS, VOIDING WELL. RT NECK IJ WITH IVF INFUSING. NO NEEDS REQUESTED.
--- NOTE | 2021-01-24 23:10 | NUR ---
PT ASKING FOR SOMETHING IV FOR SLEEP. NEW ORDER FOR IV BENADRYL 25MG FROM [facility]. PT IS AGREEABLE AND DOSE WAS GIVEN AT THIS TIME.
[2021-01-24 23:49] VITALS: BP 120/73; PULSE 71; TEMP 98
[2021-01-25 03:58] VITALS: BP 107/49; PULSE 48; TEMP 98.8
--- NOTE | 2021-01-25 05:00 | NUR ---
REPORTS GOOD SLEEP WITH IV BENADRYL.
[2021-01-25 06:43] LABS: HEMOGLOBIN 10.9 g/dl (12.5-16.0); MEAN CELL VOLUME 86 fl (80.0-100.0); MEAN CORPUSCULAR HEMOGLOBIN 28 pg (27.0-31.0); MEAN CORPUSCULAR HGB CONC 33 g/dl (33.0-37.0); MEAN PLATELET VOLUME 10.5 fl (7.4-10.4); PLATELET COUNT 136 K/mm3 (130-400); RED BLOOD COUNT 3.88 M/mm3 (4.10-5.30); REDCELL DISTRIBUTION WIDTH-CV 13.4 % (11.5-14.5)
[2021-01-25 06:44] LABS: HEMATOCRIT 33.4 % (37.0-47.0)
[2021-01-25 07:04] LABS: BILIRUBIN,TOTAL 0.4 mg/dL (0.0-1.0); CALCIUM 8.1 mg/dL (8.4-10.2); CREATININE, serum 0.83 (0.52-1.25); MAGNESIUM 1.8 mg/dL (1.6-2.3); PHOSPHOROUS 2.6 mg/dL (2.5-4.5); POTASSIUM 3.6 mmol/L (3.4-5.0); TOTAL PROTEIN 5.4 gm/dL (6.4-8.2)
--- NOTE | 2021-01-25 07:40 | NUR ---
DR.ZACHARY SPANGLER. PATIENT STILL REPORTS NAUSEA AND IS NOT INTERESTED IN EATING. DIETARY CONSULTED. PATIENT DOES SEEM TO LIKE ENSURE. EEG SCHEDULED TODAY.
[2021-01-25 07:41] VITALS: BP 106/64; PULSE 48; TEMP 98
--- NOTE | 2021-01-25 08:00 | NUR ---
PATIENT IS RESTING WITH HER EYES CLOSED BUT ORIENTED X3 AND RESPONDS APPROPRIATELY TO QUESTIONS AND COMMANDS. VSS WITH TELE IN PLACE. PATIENT STATES THAT SHE IS NAUSEOUS WITHOUT VOMMITING AND THAT HER STOMACH IS IN PAIN. PATIENT ALSO REFUSES TO EAT FOOD BUT IS WILLING TO CONSUME ENSURE. MORNING PO MED IS REFUSED BY PATIENT. IV MED GIVEN. HEAD TO TOE ASSESMENT FINISHED. LUNG SOUNDS CLEAR IN ALL LOBES. HEART SOUNDS NORMAL AND REGULAR. BOWEL SOUNDS SLOW BUT AUDIBLE IN ALL FOUR QUADRANTS. THERE IS NO EDEMA, WARMTH OR REDNESS NOTED IN THE LOWER EXTREMITIES. PULSES ARE READILY PALPABLE IN RADIAL, POST TIBIAL AND PEDAL LOCATIONS. PATIENT APPEARS TO FALL BACK TO SLEEP VERY QUICKLY BETWEEN QUESTIONS AND/OR COMMANDS. BED LEFT IN THE LOWEST POSTION AND CALL LIGHT LEFT WITHIN REACH.
--- NOTE | 2021-01-25 10:12 | NUR ---
The clinical team notified PIETER that they would want the patient to be screened by [facility]. PIETER staffed with the patient's RN. It was reported that the patient was screened by [facility] here on 01/23. PIETER contacted Jennifer at [facility] to follow up about this. Jennifer confirms that they did screen the patient on 01/23 and the safety plan was faxed to the surgical unit. The safety plan is in the patient's chart. Jennifer reports that they recommend outpatient mental health services for the patient and that she already has an appointment scheduled at [facility] on 02/02 at 0800. PIETER updated the patient's PA and RN. PIETER met with the patient to review d/c plan. The patient states that the screen was a waste of time, but that she is aware that she has an appointment with her provider, Pastora Curtis, at [facility] on 02/02. The patient states that she has no concerns about returning home with her upon discharge.
[2021-01-25 11:51] VITALS: BP 122/61; PULSE 47; TEMP 97.9
--- NOTE | 2021-01-25 12:05 | NUR ---
CALLED HOSPITALIST ABOUT DIET ADVANCMENT, OKAYED FOR GENERAL DIET. DIETARY AT BEDSIDE.
--- NOTE | 2021-01-25 12:27 | NUR ---
First visit from the placement interviewer. Patient was asleep. Oxygen Equipment Technician prayed for patient while standing outsided their door.
--- NOTE | 2021-01-25 14:00 | NUR ---
PATIENT DISCHARGING HOME, SEE ORDERS. REMOVED RIGHT IJ PER ORDERS. CENTRAL LINE CATH TIP INTACT AND PATIENT TOLERTATED WELL. COVERED SITE WITH GAUZE & OCCLUSIVE TAPE. PATIENT HOB FLAT FOR 30 MIN. NO S/S OF BLEEDING. PATIENT WILL DISCHARGE HOME LATER TODAY.
[2021-01-25 15:32] VITALS: BP 130/86; PULSE 40; TEMP 97.9
--- NOTE | 2021-01-25 16:10 | NUR ---
PATIENT GIVEN DISCHARGE INSTRUCTIONS. PATIENT DISCHARGING HOME, BEING PICKED UP BY .
== END 2021-01-25 16:15 | disposition home or self-care (01) | DRG 887 ==
LOC: COL.ER 10:45 → SURG 11:52
PROVIDERS: Family Medicine; Physician Assistant; Psychiatry & Neurology Neurology; ADMIT Family Medicine
PROC: 02HV33Z Insertion of Infusion Device into Superior Vena Cava, Percutaneous Approach (ICD-10-PCS; principal; 2021-01-22)
PROC: 0DB98ZX Excision of Duodenum, Via Natural or Artificial Opening Endoscopic, Diagnostic (ICD-10-PCS; 2021-01-23)
PROC: 0DB68ZX Excision of Stomach, Via Natural or Artificial Opening Endoscopic, Diagnostic (ICD-10-PCS; 2021-01-23)
DX: F50.89 Other specified eating disorder (principal); D68.51 Activated protein C resistance; Z68.1 Body mass index [BMI] 19.9 or less, adult; F50.2 Bulimia nervosa; I88.0 Nonspecific mesenteric lymphadenitis; K44.9 Diaphragmatic hernia without obstruction or gangrene; K29.70 Gastritis, unspecified, without bleeding; E86.0 Dehydration; R10.9 Unspecified abdominal pain; F32.9 Major depressive disorder, single episode, unspecified; F41.9 Anxiety disorder, unspecified; G40.909 Epilepsy, unspecified, not intractable, without status epilepticus; E16.2 Hypoglycemia, unspecified; Z88.6 Allergy status to analgesic agent; Z88.8 Allergy status to other drugs, medicaments and biological substances
CPT/HCPCS: 99232-AI; 99233-AI; 99239; A9541; A9585; C9113; J1200; J1650; J1953; J2060; J2405; J7030; J7042; J7070; J7120

== ENCOUNTER 2021-04-14 09:41 | Emergency (ER) | payer OTHER ==
[~2021-04-14] VITALS: Ht 165.1 cm; Wt 50.0 kg
[~2021-04-14 09:41] MED LIST changes: +CELEBREX 200MG200 MG PO
[2021-04-14 09:45] VITALS: TEMP 98.2
[2021-04-14 10:29] LABS: BASO % 0.4 % (0.0-2.0); EOS % 0.1 % (0-4.0); GRAN # 6.1 (1.4-6.5); GRAN % 82.9 % (42.2-75.2); HEMATOCRIT 38.3 % (37.0-47.0); HEMOGLOBIN 12.7 g/dl (12.5-16.0); LYMPH # 0.8 (1.2-3.4); LYMPH % 10.7 % (20.0-51.0); MEAN CELL VOLUME 87 fl (80.0-100.0); MEAN CORPUSCULAR HEMOGLOBIN 29 pg (27.0-31.0); MEAN CORPUSCULAR HGB CONC 33 g/dl (33.0-37.0); MEAN PLATELET VOLUME 9.5 fl (7.4-10.4); MONO # 0.4 (0.1-0.6); MONO % 5.6 % (1.7-9.3); PLATELET COUNT 201 K/mm3 (130-400); RED BLOOD COUNT 4.38 M/mm3 (4.10-5.30); REDCELL DISTRIBUTION WIDTH-CV 13.2 % (11.5-14.5)
[2021-04-14 10:45] LABS: ALBUMIN 4.8 gm/dL (3.5-5.0); BILIRUBIN,TOTAL 0.2 mg/dL (0.0-1.0); CALCIUM 9.2 mg/dL (8.4-10.2); POTASSIUM 3.4 mmol/L (3.4-5.0); TOTAL PROTEIN 8.2 gm/dL (6.4-8.2)
[2021-04-14 11:36] LABS: TRICYCLIC ANTIDEPRESS URINE NEGATIVE
[2021-04-14 12:15] VITALS: BP 116/70; PULSE 95
== END 2021-04-14 12:15 | disposition home or self-care (01) ==
LOC: COL.ER 09:41
PROVIDERS: Family Medicine
DX: R56.9 Unspecified convulsions (principal); Z79.899 Other long term (current) drug therapy

== ENCOUNTER 2021-05-31 06:35 | Emergency (ER) | payer OTHER ==
[~2021-05-31] VITALS: Ht 162.6 cm; Wt 50.0 kg
[2021-05-31 06:40] VITALS: TEMP 98.6
[2021-05-31 08:36] VITALS: BP 127/84; PULSE 69
== END 2021-05-31 08:36 | disposition home or self-care (01) ==
LOC: COL.ER 06:44
DX: G40.909 Epilepsy, unspecified, not intractable, without status epilepticus (principal); Z79.899 Other long term (current) drug therapy

== ENCOUNTER 2021-06-28 12:00 | Emergency (ER) | payer OTHER ==
[~2021-06-28] VITALS: Ht 157.5 cm; Wt 50.0 kg
[2021-06-28 12:03] VITALS: TEMP 97.6
[2021-06-28 14:32] LABS: BASO % 0.4 % (0.0-2.0); EOS # 0.1 (0.0-0.7); EOS % 0.7 % (0-4.0); GRAN # 5.3 (1.4-6.5); GRAN % 70.4 % (42.2-75.2); HEMOGLOBIN 12.1 g/dl (12.5-16.0); LYMPH # 1.6 (1.2-3.4); LYMPH % 21.7 % (20.0-51.0); MEAN CELL VOLUME 89 fl (80.0-100.0); MEAN CORPUSCULAR HEMOGLOBIN 29 pg (27.0-31.0); MEAN CORPUSCULAR HGB CONC 33 g/dl (33.0-37.0); MEAN PLATELET VOLUME 9.6 fl (7.4-10.4); MONO # 0.5 (0.1-0.6); MONO % 6.5 % (1.7-9.3); PLATELET COUNT 214 K/mm3 (130-400); RED BLOOD COUNT 4.15 M/mm3 (4.10-5.30); REDCELL DISTRIBUTION WIDTH-CV 11.9 % (11.5-14.5)
[2021-06-28 14:35] LABS: HEMATOCRIT 36.8 % (37.0-47.0)
[2021-06-28 14:44] LABS: BILIRUBIN,TOTAL 0.1 mg/dL (0.0-1.0); CALCIUM 8.4 mg/dL (8.4-10.2); CREATININE, serum 1.1 (0.52-1.25); POTASSIUM 3.9 mmol/L (3.4-5.0); TOTAL PROTEIN 7.5 gm/dL (6.4-8.2)
[2021-06-28 14:51] LABS: VALPROIC ACID (DEPAKENE) 52.9 ug/mL (50.0-100.0)
[2021-06-28 16:08] VITALS: BP 113/82; PULSE 73
== END 2021-06-28 16:10 | disposition home or self-care (01) ==
LOC: COL.ER 12:00
PROVIDERS: Nurse Practitioner
DX: R25.1 Tremor, unspecified (principal); Z79.899 Other long term (current) drug therapy; Z86.69 Personal history of other diseases of the nervous system and sense organs
CPT/HCPCS: J7030

== ENCOUNTER 2021-06-30 18:02 | Emergency (ER) | payer OTHER ==
[~2021-06-30] VITALS: Ht 167.6 cm; Wt 50.0 kg
[2021-06-30 18:04] VITALS: TEMP 98.2
[2021-06-30 19:37] LABS: BASO % 0.4 % (0.0-2.0); EOS % 0.4 % (0-4.0); GRAN # 4.7 (1.4-6.5); GRAN % 69.6 % (42.2-75.2); HEMATOCRIT 38.7 % (37.0-47.0); HEMOGLOBIN 12.8 g/dl (12.5-16.0); LYMPH # 1.4 (1.2-3.4); LYMPH % 20.7 % (20.0-51.0); MEAN CELL VOLUME 87 fl (80.0-100.0); MEAN CORPUSCULAR HEMOGLOBIN 29 pg (27.0-31.0); MEAN CORPUSCULAR HGB CONC 33 g/dl (33.0-37.0); MEAN PLATELET VOLUME 9.3 fl (7.4-10.4); MONO # 0.6 (0.1-0.6); MONO % 8.6 % (1.7-9.3); PLATELET COUNT 220 K/mm3 (130-400); RED BLOOD COUNT 4.46 M/mm3 (4.10-5.30); REDCELL DISTRIBUTION WIDTH-CV 11.9 % (11.5-14.5)
[2021-06-30 19:47] LABS: ALANINE AMINOTRANSFERASE 15 U/L (4-34); ALBUMIN 4.1 gm/dL (3.5-5.0); ALKALINE PHOSPHATASE 52 U/L (50-136); ANION GAP 8 mmol/L (7-16); AST,SGOT 19 U/L (15-37); BILIRUBIN,TOTAL < 0.1 mg/dL (0.0-1.0); BLOOD UREA NITROGEN 16 mg/dL (7-17); CALCIUM 8.5 mg/dL (8.4-10.2); CARBON DIOXIDE 26 mmol/L (22-30); CHLORIDE 107 mmol/L (98-107); CREATININE, serum 0.93 (0.52-1.25); GLUCOSE 97 mg/dL (74-106); SODIUM 142 mmol/L (137-145); TOTAL PROTEIN 7.5 gm/dL (6.4-8.2)
[2021-06-30 20:04] LABS: PROLACTIN 31.6 ng/mL (3.0-18.6)
[2021-06-30 20:33] LABS: COLLECTION METHOD CLEAN CATCH
[2021-06-30 20:42] LABS: MUCOUS Present /lpf; PH 5 (5-8); URINE APPEARANCE Clear; URINE BACTERIA None Seen /hpf; URINE BILIRUBIN Negative (NEGATIVE); URINE BLOOD Negative (NEGATIVE); URINE COLOR Yellow; URINE GLUCOSE Negative (NEGATIVE); URINE KETONE 1+ (NEGATIVE); URINE LEUKOCYTE ESTERASE Negative (NEGATIVE); URINE NITRATE Negative (NEGATIVE); URINE PROTEIN(semi-quant) Negative (NEGATIVE); URINE RBC 0-2 /hpf; URINE UROBILINOGEN Negative (NEGATIVE)
[2021-06-30 20:53] VITALS: BP 116/70; PULSE 64
[2021-06-30 20:56] LABS: TRICYCLIC ANTIDEPRESS URINE NEGATIVE
== END 2021-06-30 20:53 | disposition home or self-care (01) ==
LOC: COL.ER 18:02
PROVIDERS: Family Medicine
DX: R25.1 Tremor, unspecified (principal); G40.909 Epilepsy, unspecified, not intractable, without status epilepticus; Z79.899 Other long term (current) drug therapy
CPT/HCPCS: J2060

== ENCOUNTER 2021-09-03 06:54 | Emergency (ER) | payer OTHER ==
[~2021-09-03] VITALS: Ht 160 cm; Wt 45.5 kg
[2021-09-03 06:58] VITALS: TEMP 98.3
[2021-09-03 07:32] LABS: BASO % 0.5 % (0.0-2.0); EOS % 0.3 % (0-4.0); GRAN # 4.9 K/mm3 (1.4-6.5); GRAN % 74.9 % (42.2-75.2); HEMATOCRIT 39.4 % (37.0-47.0); HEMOGLOBIN 13.4 g/dl (12.5-16.0); LYMPH # 1.2 K/mm3 (1.2-3.4); LYMPH % 17.7 % (20.0-51.0); MEAN CELL VOLUME 85 fl (80.0-100.0); MEAN CORPUSCULAR HEMOGLOBIN 29 pg (27.0-31.0); MEAN CORPUSCULAR HGB CONC 34 g/dl (33.0-37.0); MEAN PLATELET VOLUME 9.3 fl (7.4-10.4); MONO # 0.4 K/mm3 (0.1-0.6); MONO % 6.1 % (1.7-9.3); PLATELET COUNT 200 K/mm3 (130-400); RED BLOOD COUNT 4.65 M/mm3 (4.10-5.30); REDCELL DISTRIBUTION WIDTH-CV 12.9 % (11.5-14.5)
[2021-09-03 07:51] LABS: ALBUMIN 4.3 gm/dL (3.5-5.0); BILIRUBIN,TOTAL 0.4 mg/dL (0.2-1.2); C-REACTIVE PROTEIN 0.04 mg/dL (0.00-0.50); CALCIUM 9.5 mg/dL (8.4-10.2); CREATININE, serum 1.08 mg/dL (0.57-1.11); POTASSIUM 3.2 mmol/L (3.5-4.5)
[2021-09-03 08:11] LABS: PROLACTIN 29.4 ng/mL (5.18-26.53)
[2021-09-03 09:39] LABS: COLLECTION METHOD CLEAN CATCH
[2021-09-03 09:53] LABS: PH 7 (5-8); SQUAMOUS EPITHELIAL 0-2 /hpf; URINE APPEARANCE Hazy; URINE BACTERIA None Seen /hpf; URINE BILIRUBIN Negative (NEGATIVE); URINE BLOOD Negative (NEGATIVE); URINE COLOR Yellow; URINE GLUCOSE Negative (NEGATIVE); URINE KETONE Negative (NEGATIVE); URINE LEUKOCYTE ESTERASE Negative (NEGATIVE); URINE NITRATE Negative (NEGATIVE); URINE PROTEIN(semi-quant) Negative (NEGATIVE); URINE RBC 0-2 /hpf; URINE UROBILINOGEN Negative (NEGATIVE)
[2021-09-03 10:20] VITALS: BP 115/69; PULSE 89
== END 2021-09-03 10:20 | disposition home or self-care (01) ==
LOC: COL.ER 06:54
PROVIDERS: Family Medicine
DX: G40.909 Epilepsy, unspecified, not intractable, without status epilepticus (principal); F41.9 Anxiety disorder, unspecified; Z79.899 Other long term (current) drug therapy

== ENCOUNTER 2021-09-10 18:28 | Emergency (ER) | payer OTHER ==
[2021-09-10 19:09] VITALS: TEMP 98.7
[2021-09-10] MEDS ORDERED: CLEOCIN HCL300 MG PO (19:36)
[2021-09-10 20:36] VITALS: BP 104/65; PULSE 76
== END 2021-09-10 20:36 | disposition home or self-care (01) ==
LOC: COL.ER 18:28
DX: L03.116 Cellulitis of left lower limb (principal); I80.252 Phlebitis and thrombophlebitis of left calf muscular vein; D68.51 Activated protein C resistance; G40.909 Epilepsy, unspecified, not intractable, without status epilepticus; Z79.899 Other long term (current) drug therapy

== ENCOUNTER 2021-09-19 12:55 | Emergency (ER) | payer OTHER ==
[~2021-09-19] VITALS: Ht 160 cm; Wt 50.0 kg
[~2021-09-19 12:55] MED LIST changes: +CLEOCIN HCL300 MG PO
[2021-09-19 14:31] LABS: ALANINE AMINOTRANSFERASE 19 U/L (0-55); ALBUMIN 4.6 gm/dL (3.5-5.0); ALKALINE PHOSPHATASE 43 U/L (40-150); ANION GAP 13 mmol/L (7-16); AST,SGOT 47 U/L (5-34); BILIRUBIN,TOTAL 0.3 mg/dL (0.2-1.2); BLOOD UREA NITROGEN 13 mg/dL (7-19); C-REACTIVE PROTEIN 0.12 mg/dL (0.00-0.50); CALCIUM 9.3 mg/dL (8.4-10.2); CARBON DIOXIDE 24 mmol/L (22-29); CHLORIDE 101 mmol/L (98-107); CREATININE, serum 1.09 mg/dL (0.57-1.11); GLUCOSE 83 mg/dL (70-99); POTASSIUM 4.2 mmol/L (3.5-4.5); SODIUM 138 mmol/L (136-145)
[2021-09-19 14:37] LABS: TROPONIN-I < 0.010 ng/mL (0.00-0.033)
[2021-09-19 14:46] LABS: BASO % 0.5 % (0.0-2.0); EOS % 0.3 % (0-4.0); GRAN # 4.7 K/mm3 (1.4-6.5); GRAN % 75.4 % (42.2-75.2); HEMATOCRIT 37.5 % (37.0-47.0); HEMOGLOBIN 12.3 g/dl (12.5-16.0); LYMPH # 0.9 K/mm3 (1.2-3.4); LYMPH % 14.9 % (20.0-51.0); MEAN CELL VOLUME 87 fl (80.0-100.0); MEAN CORPUSCULAR HEMOGLOBIN 28 pg (27.0-31.0); MEAN CORPUSCULAR HGB CONC 33 g/dl (33.0-37.0); MEAN PLATELET VOLUME 9.3 fl (7.4-10.4); MONO # 0.5 K/mm3 (0.1-0.6); MONO % 8.7 % (1.7-9.3); PLATELET COUNT 162 K/mm3 (130-400); RED BLOOD COUNT 4.33 M/mm3 (4.10-5.30); REDCELL DISTRIBUTION WIDTH-CV 12.8 % (11.5-14.5)
[2021-09-19 14:53] LABS: INR 1.2 (0.8-3.0); PROTHROMBIN TIME 13.1 SECONDS (9.7-12.8)
[2021-09-19 17:38] VITALS: BP 116/78; PULSE 84; TEMP 98.6
== END 2021-09-19 17:30 | disposition home or self-care (01) ==
LOC: COL.ER 12:55
PROVIDERS: Family Medicine; Nurse Practitioner
DX: R07.9 Chest pain, unspecified (principal); F41.9 Anxiety disorder, unspecified; F32.A Depression, unspecified; Z79.899 Other long term (current) drug therapy
CPT/HCPCS: J1885; J3010; Q9967

== ENCOUNTER 2021-11-23 13:02 | Emergency (ER) | payer OTHER ==
[~2021-11-23] VITALS: Ht 162.6 cm; Wt 50.0 kg
[2021-11-23 14:39] LABS: BASO % 0.3 % (0.0-2.0); EOS % 0.1 % (0.0-4.0); GRAN # 11.3 K/mm3 (1.4-6.5); HEMATOCRIT 37.4 % (37.0-47.0); HEMOGLOBIN 12.4 g/dl (12.5-16.0); LYMPH # 1.1 K/mm3 (1.2-3.4); LYMPH % 8.1 % (20.0-51.0); MEAN CELL VOLUME 87 fl (80.0-100.0); MEAN CORPUSCULAR HEMOGLOBIN 29 pg (27-31); MEAN CORPUSCULAR HGB CONC 33 g/dl (33.0-37.0); MEAN PLATELET VOLUME 9.3 fl (7.4-10.4); MONO # 1.1 K/mm3 (0.1-0.6); MONO % 7.8 % (1.7-9.3); PLATELET COUNT 146 K/mm3 (130-400); RED BLOOD COUNT 4.32 M/mm3 (4.10-5.30); REDCELL DISTRIBUTION WIDTH-CV 12.5 % (11.5-14.5)
[2021-11-23 15:15] LABS: ACETAMINOPHEN < 1.0 ug/mL (10-30); ALANINE AMINOTRANSFERASE 16 U/L (0-55); ALKALINE PHOSPHATASE 41 U/L (40-150); ANION GAP 9 mmol/L (7-16); AST,SGOT 26 U/L (5-34); BILIRUBIN,TOTAL 0.6 mg/dL (0.2-1.2); BLOOD UREA NITROGEN 15 mg/dL (7-19); CALCIUM 9.1 mg/dL (8.4-10.2); CARBON DIOXIDE 26 mmol/L (22-29); CHLORIDE 104 mmol/L (98-107); CREATININE, serum 0.91 mg/dL (0.57-1.11); GLUCOSE 102 mg/dL (70-99); SALICYLATE < 5.0 mg/dL (15.0-30.0); SODIUM 139 mmol/L (136-145); TOTAL PROTEIN 7.5 gm/dL (6.2-8.1)
[2021-11-23 15:43] LABS: COLLECTION METHOD CATHETER
[2021-11-23 15:54] LABS: MUCOUS Present (NOT PRESENT); PH 8 (5-8); SQUAMOUS EPITHELIAL 0-2 /hpf (0-10); URINE APPEARANCE Clear (CLEAR/HAZY); URINE BACTERIA None Seen /hpf (NONE SEEN); URINE BILIRUBIN Negative (NEGATIVE); URINE BLOOD Negative (NEGATIVE); URINE COLOR Yellow (YELLOW); URINE GLUCOSE Negative (NEGATIVE); URINE KETONE Trace (NEGATIVE); URINE LEUKOCYTE ESTERASE Negative (NEGATIVE); URINE NITRATE Negative (NEGATIVE); URINE PROTEIN(semi-quant) 1+ (NEGATIVE)
[2021-11-23 16:08] LABS: TRICYCLIC ANTIDEPRESS URINE NEGATIVE
[2021-11-23 17:09] LABS: GLUCOSE,CSF 65 mg/dL (40-70); TOTAL PROTEIN,CSF 31 mg/dL (15-45)
[2021-11-23 17:25] LABS: CSF APPEARANCE CLEAR; CSF COLOR COLORLESS; CSF RBC < 1 /mm3 (0-0)
[2021-11-23 17:55] LABS: CSF MONONUCLEAR 100 % (70-100); CSF POLYMORPHONUCLEAR 0 % (0-6)
[2021-11-24 00:25] VITALS: BP 94/66; PULSE 86
== END 2021-11-24 00:25 | disposition short-term general hospital (02) ==
LOC: COL.ER 13:02
PROVIDERS: Personal Emergency Response Attendant
DX: R41.82 Altered mental status, unspecified (principal); J18.9 Pneumonia, unspecified organism; G40.909 Epilepsy, unspecified, not intractable, without status epilepticus; F32.A Depression, unspecified; D68.51 Activated protein C resistance; Z20.822 Contact with and (suspected) exposure to COVID-19; Z79.899 Other long term (current) drug therapy
CPT/HCPCS: J0696; J1953; J3370; J3480; J7030; J7050

== ENCOUNTER 2022-01-27 20:21 | Emergency (ER) | payer OTHER ==
[~2022-01-27] VITALS: Ht 162.6 cm; Wt 54.5 kg
[2022-01-27 22:05] LABS: BASO % 0.8 % (0.0-2.0); EOS # 0.1 K/mm3 (0.0-0.7); EOS % 1.3 % (0.0-4.0); GRAN # 3.2 K/mm3 (1.4-6.5); GRAN % 59.6 % (42.2-75.2); HEMATOCRIT 38.4 % (37.0-47.0); HEMOGLOBIN 12.9 g/dl (12.5-16.0); LYMPH # 1.4 K/mm3 (1.2-3.4); LYMPH % 26.9 % (20.0-51.0); MEAN CELL VOLUME 84 fl (80.0-100.0); MEAN CORPUSCULAR HEMOGLOBIN 28 pg (27-31); MEAN CORPUSCULAR HGB CONC 34 g/dl (33.0-37.0); MEAN PLATELET VOLUME 8.7 fl (7.4-10.4); MONO # 0.6 K/mm3 (0.1-0.6); MONO % 11.2 % (1.7-9.3); PLATELET COUNT 193 K/mm3 (130-400); RED BLOOD COUNT 4.55 M/mm3 (4.10-5.30); REDCELL DISTRIBUTION WIDTH-CV 12.9 % (11.5-14.5)
[2022-01-27 22:23] LABS: ALBUMIN 4.3 gm/dL (3.5-5.0); BILIRUBIN,TOTAL 0.6 mg/dL (0.2-1.2); CALCIUM 9.5 mg/dL (8.4-10.2); CREATININE, serum 1.06 mg/dL (0.57-1.11); POTASSIUM 3.9 mmol/L (3.5-4.5); TOTAL PROTEIN 7.6 gm/dL (6.2-8.1)
[2022-01-27 22:43] LABS: PROLACTIN 94.6 ng/mL (5.18-26.53)
[2022-01-27 23:39] VITALS: BP 128/71; PULSE 79; TEMP 97.9
== END 2022-01-27 23:40 | disposition home or self-care (01) ==
LOC: COL.ER 20:21
PROVIDERS: Nurse Practitioner
DX: G40.909 Epilepsy, unspecified, not intractable, without status epilepticus (principal)

== ENCOUNTER 2022-05-12 08:55 | Emergency (ER) | payer OTHER ==
[~2022-05-12] VITALS: Ht 162.6 cm; Wt 52.3 kg
[2022-05-12 08:58] VITALS: TEMP 99.1
[2022-05-12 10:18] LABS: BASO % 0.6 % (0.0-2.0); EOS # 0.1 K/mm3 (0.0-0.7); EOS % 0.8 % (0.0-4.0); GRAN # 4.5 K/mm3 (1.4-6.5); GRAN % 73.3 % (42.2-75.2); HEMATOCRIT 43.3 % (37.0-47.0); HEMOGLOBIN 14.4 g/dl (12.5-16.0); LYMPH # 1.1 K/mm3 (1.2-3.4); LYMPH % 17.7 % (20.0-51.0); MEAN CELL VOLUME 86 fl (80.0-100.0); MEAN CORPUSCULAR HEMOGLOBIN 29 pg (27-31); MEAN CORPUSCULAR HGB CONC 33 g/dl (33.0-37.0); MEAN PLATELET VOLUME 9.6 fl (7.4-10.4); MONO # 0.5 K/mm3 (0.1-0.6); MONO % 7.3 % (1.7-9.3); PLATELET COUNT 168 K/mm3 (130-400); RED BLOOD COUNT 5.02 M/mm3 (4.10-5.30); REDCELL DISTRIBUTION WIDTH-CV 13.5 % (11.5-14.5)
[2022-05-12 10:36] LABS: BILIRUBIN,TOTAL 0.5 mg/dL (0.2-1.2); CALCIUM 9.8 mg/dL (8.4-10.2); CREATININE, serum 1.18 mg/dL (0.57-1.11); POTASSIUM 3.4 mmol/L (3.5-4.5); TOTAL PROTEIN 8.4 gm/dL (6.2-8.1); VALPROIC ACID (DEPAKENE) 50.4 ug/mL (43.5-90.5)
[2022-05-12 11:47] VITALS: BP 126/84; PULSE 64
== END 2022-05-12 11:47 | disposition home or self-care (01) ==
LOC: COL.ER 08:55
PROVIDERS: Personal Emergency Response Attendant
DX: G40.909 Epilepsy, unspecified, not intractable, without status epilepticus (principal); Z79.899 Other long term (current) drug therapy

== ENCOUNTER 2022-05-12 21:01 | Emergency (ER) | payer OTHER ==
[~2022-05-12] VITALS: Ht 162.6 cm; Wt 68.2 kg
[2022-05-12 22:02] VITALS: TEMP 98.1
[2022-05-12 23:24] LABS: BASO % 0.3 % (0.0-2.0); EOS % 0.7 % (0.0-4.0); GRAN # 3.6 K/mm3 (1.4-6.5); GRAN % 60.8 % (42.2-75.2); LYMPH # 1.7 K/mm3 (1.2-3.4); LYMPH % 29.4 % (20.0-51.0); MEAN CELL VOLUME 86 fl (80.0-100.0); MEAN CORPUSCULAR HGB CONC 34 g/dl (33.0-37.0); MEAN PLATELET VOLUME 9.7 fl (7.4-10.4); MONO # 0.5 K/mm3 (0.1-0.6); MONO % 8.5 % (1.7-9.3); PLATELET COUNT 157 K/mm3 (130-400); RED BLOOD COUNT 4.29 M/mm3 (4.10-5.30); REDCELL DISTRIBUTION WIDTH-CV 13.4 % (11.5-14.5)
[2022-05-12 23:27] LABS: HEMATOCRIT 36.7 % (37.0-47.0); HEMOGLOBIN 12.3 g/dl (12.5-16.0); MEAN CORPUSCULAR HEMOGLOBIN 29 pg (27-31)
[2022-05-12 23:30] LABS: ALANINE AMINOTRANSFERASE 18 U/L (0-55); ALBUMIN 4.4 gm/dL (3.5-5.0); ALKALINE PHOSPHATASE 36 U/L (40-150); ANION GAP 14 mmol/L (7-16); AST,SGOT 17 U/L (5-34); BILIRUBIN,TOTAL 0.2 mg/dL (0.2-1.2); BLOOD UREA NITROGEN 20 mg/dL (7-19); CARBON DIOXIDE 26 mmol/L (22-29); CHLORIDE 103 mmol/L (98-107); CREATININE, serum 1.17 mg/dL (0.57-1.11); GLUCOSE 119 mg/dL (70-99); SODIUM 143 mmol/L (136-145); TOTAL PROTEIN 7.3 gm/dL (6.2-8.1)
[2022-05-12 23:34] LABS: POTASSIUM 2.9 mmol/L (3.5-4.5)
[2022-05-12 23:37] LABS: VALPROIC ACID (DEPAKENE) 37.5 ug/mL (43.5-90.5)
[2022-05-12 23:39] LABS: TROPONIN-I < 0.010 ng/mL (0.00-0.033)
[2022-05-13 03:17] VITALS: BP 115/76; PULSE 92
== END 2022-05-13 03:17 | disposition home or self-care (01) ==
LOC: COL.ER 21:01
PROVIDERS: Physician Assistant
DX: E87.6 Hypokalemia (principal); G40.909 Epilepsy, unspecified, not intractable, without status epilepticus; Z79.899 Other long term (current) drug therapy
CPT/HCPCS: J2250; J2405; J2550; J7030

== ENCOUNTER 2023-01-10 21:43 | Emergency (ER) | payer OTHER ==
[~2023-01-10] VITALS: Ht 162.6 cm; Wt 50.0 kg
[2023-01-10 22:59] LABS: BASO % 0.4 % (0.0-2.0); EOS % 0.1 % (0.0-4.0); GRAN # 6.1 K/mm3 (1.4-6.5); GRAN % 80.8 % (42.2-75.2); HEMATOCRIT 36.8 % (37.0-47.0); HEMOGLOBIN 12.1 g/dl (12.5-16.0); LYMPH # 0.7 K/mm3 (1.2-3.4); LYMPH % 9.2 % (20.0-51.0); MEAN CELL VOLUME 85 fl (80.0-100.0); MEAN CORPUSCULAR HEMOGLOBIN 28 pg (27-31); MEAN CORPUSCULAR HGB CONC 33 g/dl (33.0-37.0); MEAN PLATELET VOLUME 9.5 fl (7.4-10.4); MONO # 0.7 K/mm3 (0.1-0.6); MONO % 9.2 % (1.7-9.3); PLATELET COUNT 188 K/mm3 (130-400); RED BLOOD COUNT 4.35 M/mm3 (4.10-5.30); REDCELL DISTRIBUTION WIDTH-CV 13.5 % (11.5-14.5)
[2023-01-10 23:07] LABS: PROTHROMBIN TIME 11.8 SECONDS (9.7-12.8)
[2023-01-10 23:10] LABS: PARTIAL THROMBOPLASTIN TIME 31.8 SECONDS (26.0-37.0)
[2023-01-10 23:14] LABS: ALANINE AMINOTRANSFERASE 17 U/L (0-55); ALBUMIN 4.2 gm/dL (3.5-5.0); ALKALINE PHOSPHATASE 44 U/L (40-150); ANION GAP 12 mmol/L (7-16); AST,SGOT 20 U/L (5-34); BILIRUBIN,TOTAL 0.4 mg/dL (0.2-1.2); BLOOD UREA NITROGEN 11 mg/dL (7-19); CALCIUM 9.4 mg/dL (8.4-10.2); CARBON DIOXIDE 26 mmol/L (22-29); CHLORIDE 101 mmol/L (98-107); CREATININE, serum 1.17 mg/dL (0.57-1.11); GLUCOSE 112 mg/dL (70-99); POTASSIUM 3.5 mmol/L (3.5-4.5); SODIUM 139 mmol/L (136-145); TOTAL PROTEIN 7.7 gm/dL (6.2-8.1)
[2023-01-10 23:21] LABS: TROPONIN-I < 0.010 ng/mL (0.00-0.033)
[2023-01-10 23:29] LABS: D-DIMER < 200.00 ng/mLDDu (200-230)
[2023-01-10 23:47] VITALS: BP 129/79; PULSE 100; TEMP 99.4
== END 2023-01-10 23:38 | disposition home or self-care (01) ==
LOC: COL.ER 21:43
PROVIDERS: Family Medicine
DX: R07.89 Other chest pain (principal); Z28.310 Unvaccinated for COVID-19
CPT/HCPCS: J2405; J3010; J7120